=== PATIENT | male | born 1965 | race Caucasian/White ===

== ENCOUNTER 2017-02-17 14:01 | Inpatient (IN) | payer OTHER ==
[~2017-02-17] VITALS: Ht 170.2 cm; Wt 100.0 kg
[~2017-02-17 14:01] MED LIST: ASPI81 PO; CART120C2 PO; EMPA1TAB PO; GLUCOMTESTSTRIPS XX; INSU-118 SQ; LEVEMIR SQ; LISI-360 PO; LORTA5 PO; METF-324 PO; ROSU40 PO; VIAG50TA PO; ZOFR4TAB3 SL
[2017-02-17 14:03] VITALS: BP 117/70; PULSE 95; RESP 16; TEMP 98.5; O2SAT 98
[2017-02-17] MEDS ORDERED: VANCOMYCIN INJ 1,000 MG in SODIUM CHLOR 0.9% 250 ML INJ 250 ML IV STA (15:27)
[2017-02-17] MEDS ORDERED: PIPERACIL-TAZO 4.5 GM PREMIX 100 ML IV STA (15:27)
[2017-02-17] MEDS ORDERED: ONDANSETRON HCL 4 MG/2 ML VIAL IV PUSH ONE (16:00)
[2017-02-17 16:11] VITALS: O2SAT 97
--- NOTE | 2017-02-17 16:15 | RADRPT ---
EXAM DATE/TIME: 02/17/2017 15:46 [facility] COMPARISON: No previous studies available for comparison. INDICATIONS : Possible left foot infection. Swelling around the 4th and 5th digit. Ulcer on plantar surface around 4th and 5th digit. MEDICAL HISTORY : Diabetes mellitus type II. SURGICAL HISTORY : None. ENCOUNTER: Initial ACUITY: 3 months PAIN SCORE: 0/10 LOCATION: Left foot. FINDINGS: Soft tissue swelling is noted involving the left fourth and fifth digits. There is no acute fracture or dislocation. No definite erosive changes are identified within the left foot. Mild degenerative c hanges are noted involving the left first metatarsophalangeal joint. CONCLUSION: 1. Mild soft-tissue swelling involving the left fourth and fifth digits. 2. No acute fracture, dislocation or erosive changes. 3. Mild degenerative changes involving the left first metatarsophalangeal joint. Mike Naylor MD on February 17, 2017 at 16:02 Board Certified Radiologist. This report was verified electronically.
--- NOTE | 2017-02-17 16:41 | PD ---
HPI Chief Complaint: Skin Problem Time Seen by Provider: 16:38 Travel History International Travel<30 days: No Contact w/Intl Traveler<30days: No Traveled to known affect area: No History of Present Illness HPI 51-year-old male that presents to the ED for evaluation of wounds to his left leg. Per patient he has an ulcer from diabetes on his left foot. Patient follows with Dr. Davies regularly and she's been treating him for the past 3 months for this with no resolution. Per patient she was seen today and Dr. Davies was concerned because the wound appeared to be more infected and she wrote him a prescription that states that [facility] and consult to him and will like at MRI as well as start the patient on Vancomycin Zosyn. Patient voices no pain as he has chronic neuropathy. Patient has a history of diabetes and takes insulin. She states that the swelling and redness appears to be worsening. He states having chills for the past couple of days worsening today. No actual fever as he has not checked his temperature. No chest pain or shortness of breath. No cough or runny nose. No abdominal pain. No other complaints. PFSH Past Medical History Asthma: Yes Cancer: No Cardiovascular Problems: Yes (TACHYCARDIA ) High Cholesterol: Yes Diabetes: Yes Diminished Hearing: No Endocrine: Yes Gastrointestinal Disorders: Yes (ACID REFLUX, NAUSEA/VOMITING) Genitourinary: No Hepatitis: No Hiatal Hernia: Yes (POSSIBLY) Hypertension: Yes Immune Disorder: No Musculoskeletal: Yes (ARTHRITIS LOWER BACK) Neurologic: Yes (PERIPHERAL NEUROPATHY) Psychiatric: No Reproductive: No Respiratory: Yes (SEVERE SLEEP APNEA, CHILDHOOD ASTHMA) Myocardial Infarction: Yes (12-13 YEARS AGO) Thyroid Disease: No ?: Past Surgical History AICD: No Body Medical Devices: REMOVABLE PROSTHETIC L EYE Eye Surgery: Yes (LEFT EYE ENUCLEATION 2004) Joint Replacement: No Oral Surgery: Yes (TONSILLECTOMY) Pacemaker: No Tonsillectomy: Yes Social History Alcohol Use: Yes Tobacco Use: No Substance Use: No Allergies-Medications (Allergen,Severity, Reaction): Coded Allergies: No Known Allergies (Verified , 05/24/16) Reported Meds & Prescriptions Reported Meds & Active Scripts Active Zofran ODT (Ondansetron HCl) 4 Mg Tab 4 Mg SL Q8HR PRN FOR NAUSEA/VOMITING [place] 5-325 mg (Hydrocodone-Acetaminophen 5-325 mg) 1 Tab 1 Tab PO Q6HR PRN Cartia XT 120 mg (DILTIAZEM XT 120 mg (Cartia)) 120 Mg/24 Hr Cap 120 Mg PO HS Needs follow up. Glucophage (Metformin HCl) 1,000 Mg Tab 1,000 Mg PO BID Lisinopril 10 mg (Lisinopril) 10 Mg Tab 10 Mg PO HS [employer] Insulin Syringes/ 31G X 5/16" 1 ml (Insulin Syringe/Needle U-100) 1 Mis Mis Syringe SQ TID 100units. 12 refills. Glucometer Test Strips (Glucomteststrips) Box 1 Strips XX QID Check 4 times a day. On insulin. 2 boxes Refill 12 times Viagra (Sildenafil Citrate) 50 Mg Tab 50 Mg PO ONCE PRN Reported Levemir Insulin (Insulin Detemir) 100 Units/Ml Inj 75 Units SQ BID Jardiance (Empagliflozin) 10 Mg Tab 10 Mg PO DAILY Crestor (Rosuvastatin Calcium) 40 Mg Tab 1 Tab PO HS Aspirin 81 Mg Tab 81 Mg PO DAILY Review of Systems Except as stated in HPI: all other systems reviewed are Neg Physical Exam Narrative GENERAL: SKIN: Warm and dry. HEAD: Atraumatic. Normocephalic. EYES: Pupils equal and round. No scleral icterus. No injection or drainage. ENT: No nasal bleeding or discharge. Mucous membranes pink and moist. Tongue is midline. No blood deviation. NECK: Trachea midline. No JVD. CARDIOVASCULAR: Regular rate and rhythm. No murmurs, S3, S4. RESPIRATORY: No accessory muscle use. Clear to auscultation. Breath sounds equal bilaterally. GASTROINTESTINAL: Abdomen soft, non-tender, nondistended. Hepatic and splenic margins not palpable. MUSCULOSKELETAL: Extremities without clubbing, cyanosis, or edema. No obvious deformities. Full range of motion of the upper and lower extremities bilaterally. 2+ pulses bilaterally. Patient does have soft tissue swelling noted especially on the dorsal and plantar aspect of the left foot. Patient has an ulcer with drainage and erythema on the sole of the foot. Nontender. NEUROLOGICAL: Awake and alert. No obvious cranial nerve deficits. Motor grossly within normal limits. Five out of 5 muscle strength in the arms and legs. Normal speech. PSYCHIATRIC: Appropriate mood and affect; insight and judgment normal. Data Data Last Documented VS Vital Signs Date Time Temp Pulse Resp B/P Pulse Ox O2 Delivery O2 Flow Rate FiO2 02/17/17 16:11 97 02/17/17 16:11 Room Air 02/17/17 14:03 98.5 95 16 117/70 Orders Complete Blood Count With Diff (02/17/17 15:27) Comprehensive Metabolic Panel (02/17/17 15:) Lactic Acid Sepsis Protocol (02/17/17 15:) Blood Culture (02/17/17) Blood Glucose (02/17/17:) Ecg Monitoring (02/17/17) Iv Access Insert/Monitor (02/17/17) Oximetry (02/17/17) Oxygen Administration (02/17/17) Piperacil-Tazo 4.5 Gm Premix (Zosyn 4.5 (02/17/17 15:) Vancomycin Inj (Vancomycin Inj) (02/17/17 15:27) Foot, Complete (Jpg1ozo) (02/17/17 15:) Ondansetron Inj (Zofran Inj) (02/17/17 16:00) Mri Foot W&W/O Contrast (02/17/17 ) Admit Order (Ed Use Only) (02/17/17 17:04) Labs Laboratory Tests Test 02/17/17 02/17/17 16:18 16:20 Lactic Acid Level 1.2 mmol/L White Blood Count 11.5 TH/MM3 Red Blood Count 4.50 MIL/MM3 Hemoglobin 11.7 GM/DL Hematocrit 35.5 % Mean Corpuscular Volume 78.8 FL Mean Corpuscular Hemoglobin 26.1 PG Mean Corpuscular Hemoglobin 33.1 % Concent Red Cell Distribution Width 13.8 % Platelet Count 239 TH/MM3 Mean Platelet Volume 8.4 FL Neutrophils (%) (Auto) 69.1 % Lymphocytes (%) (Auto) 17.5 % Monocytes (%) (Auto) 11.4 % Eosinophils (%) (Auto) 1.7 % Basophils (%) (Auto) 0.3 % Neutrophils # (Auto) 7.9 TH/MM3 Lymphocytes # (Auto) 2.0 TH/MM3 Monocytes # (Auto) 1.3 TH/MM3 Eosinophils # (Auto) 0.2 TH/MM3 Basophils # (Auto) 0.0 TH/MM3 CBC Comment DIFF FINAL Differential Comment MDM Medical Decision Making Medical Screen Exam Complete: Yes Emergency Medical Condition: Yes Medical Record Reviewed: Yes Interpretation(s) CBC & BMP Diagram 02/17/17 16:20 Last Impressions Foot X-Ray 02/17/17 1527 Signed Impressions: Service Date/Time: Friday, February 17, 2017 15:46 - CONCLUSION: 1. Mild soft-tissue swelling involving the left fourth and fifth digits. 2. No acute fracture, dislocation or erosive changes. 3. Mild degenerative changes involving the left first metatarsophalangeal joint. Mike Naylor MD Differential Diagnosis Osteomyelitis versus diabetic foot ulcer versus fell outpatient treatment versus nonhealing ulcer Narrative Course 51-year-old male that presents to the ED for evaluation of ulcer that is infected. Patient was properly examined and was found to have signs and symptoms very consistent what appears to be filled patient treatment for a diabetic ulcer. Dr. Davies evaluated him today and told him to come here to get admitted for IV antibiotics and consultation to him to rule out osteomyelitis. Patient does have a history of this in the past. Patient has been in multiple courses of antibiotics for the past 3 months with no resolution and the infection seems to be worsening. Labs and imaging were ordered. Case discussed in my attending who agrees with plan. [facility] hospitalist Dr Jiménez agrees to admission. Diagnosis Primary Impression: Diabetic foot infection Additional Impressions: Non-healing ulcer of lower leg Qualified Code: L97.922 - Non-healing ulcer of lower leg, left, with fat layer exposed Diabetes mellitus Qualified Code: E11.42 - Type 2 diabetes mellitus with diabetic polyneuropathy , with long-term current use of insulin Failure of outpatient treatment Admitting Information Admitting Physician Requests: Admit Waldo Ledesma Feb 17, 2017 16:41
[2017-02-17 16:54] LABS: AUTOMATED NEUTROPHIL # 7.9 TH/MM3 (1.8-7.7); BASOPHIL % 0.3 % (0.0-2.0); EOSINOPHIL # 0.2 TH/MM3 (0-0.4); EOSINOPHIL % 1.7 % (0.0-4.0); HEMATOCRIT 35.5 % (39.0-51.0); HEMO FLAGS DIFF FINAL; LYMPH % 17.5 % (9.0-44.0); MEAN CELL VOLUME 78.8 FL (80.0-100.0); MEAN CORPUSCULAR HEMOGLOBIN 26.1 PG (27.0-34.0); MEAN CORPUSCULAR HGB CONC 33.1 % (32.0-36.0); MONO % 11.4 % (0.0-8.0); NEUT % 69.1 % (16.0-70.0); PLATELET COUNT 239 TH/MM3 (150-450); RED CELL DISTRIBUTION WIDTH 13.8 % (11.6-17.2); WHITE BLOOD COUNT 11.5 TH/MM3 (4.0-11.0)
[2017-02-17 17:05] VITALS: BP 132/63; PULSE 88; RESP 16; O2SAT 98
[2017-02-17 17:27] LABS: ALT (GPT) 17 U/L (12-78); ANION GAP 6 MEQ/L (5-15); AST (GOT) 8 U/L (15-37); BLOOD UREA NITROGEN 21 MG/DL (7-18); CHLORIDE 105 MEQ/L (98-107); GLOMERULAR FILTRATION RATE 81 ML/MIN (>89); POTASSIUM 3.8 MEQ/L (3.5-5.1); SODIUM (NA) 139 MEQ/L (136-145)
[2017-02-17 17:30] LABS: ALKALINE PHOSPHATASE 66 U/L (45-117); TOTAL BILIRUBIN ADULT 0.8 MG/DL (0.2-1.0)
[2017-02-17] MEDS ORDERED: GADODIAMIDE PF 287 MG/ML 20 ML VIAL (for RAD MRI) IV ONE (18:32)
[2017-02-17 19:15] VITALS: BP 100/62; PULSE 96; RESP 20; O2SAT 96
--- NOTE | 2017-02-17 20:01 | HHI.HP ---
HPI Service [facility] Hospitalists Primary Care Physician Anthony Kincaid MD Admission Diagnosis left foot infected diabetic ulcer, failed outpatient treatment Chief Complaint: left foot infection, sent by clinical mental health counselor Travel History International Travel<30 Days: No Contact w/Intl Traveler <30 Da: No Traveled to Known Affected Are: No History of Present Illness 51-year-old male with DM2 and prior osteomyelitis that presents to the ED for evaluation of wounds to his left leg. Per patient he has an ulcer from diabetes on his left foot. Patient follows with Dr. Davies regularly and she's been treating him for the past 2.5-3 months for this with no resolution. Per patient she was seen today and Dr. Davies was concerned because the wound appeared to be more infected and she wrote him a prescription that states that [facility] and consult to her and will like at MRI as well as start the patient on Vancomycin/Zosyn. Patient voices no pain as he has chronic neuropathy. Patient has a history of diabetes and takes insulin as well as oral hyperglycemic agents. She states that the swelling and redness appears to be worsening. He states having chills for the past couple of days worsening today. No actual fever as he has not checked his temperature, but reports subjective fever last 2 days with more redness in left 4th toe. No chest pain or shortness of breath. No cough or runny nose. No abdominal pain. No other complaints. Review of Systems Constitutional: COMPLAINS OF: Diaphoretic episodes, Fever, Chills, DENIES: Fatigue, Weight gain, Weight loss, Dizziness, Change in appetite, Night Sweats Endocrine: DENIES: Heat/cold intolerance, Polydipsia, Polyuria, Polyphagia Eyes: COMPLAINS OF: Vision loss, DENIES: Blurred vision, Diplopia, Eye inflammation, Eye pain, Photosensitivity, Double Vision Ears, nose, mouth, throat: DENIES: Tinnitus, Hearing loss, Vertigo, Nasal discharge, Oral lesions, Throat pain, Hoarseness, Ear Pain, Running Nose, Epistaxis, Sinus Pain, Toothache, Odynophagia Respiratory: DENIES: Apneas, Cough, Snoring, Wheezing, Hemoptysis, Sputum production, Shortness of breath Cardiovascular: DENIES: Chest pain, Palpitations, Syncope, Dyspnea on Exertion , PND, Lower Extremity Edema, Orthopnea, Claudication Gastrointestinal: DENIES: Abdominal pain, Black stools, Bloody stools, BRB per rectum, Constipation, Diarrhea, GERD, Nausea, Reflux, Vomiting, Difficulty Swallowing, Anorexia, See HPI Musculoskeletal: COMPLAINS OF: Joint pain Hematologic/lymphatic: DENIES: Bruising, Lymphadenopathy Immunologic/allergic: DENIES: Eczema, Urticaria Neurologic: COMPLAINS OF: Abnormal gait, Paresthesias, DENIES: Headache, Localized weakness, Seizures, Speech Problems, Tremor, Poor Balance Psychiatric: COMPLAINS OF: Anxiety Past Family Social History Past Medical History DM2 dx in late HTN Hyperlipidemia osteomyelitis 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 Glucophage (Metformin HCl) 1,000 Mg Tab 1,000 Mg PO BID Ramipril 5mg/d Glucometer Test Strips (Glucomteststrips) Box 1 Strips XX QID Check 4 times a day. On insulin. 2 boxes Refill 12 times Viagra (Sildenafil Citrate) 50 Mg Tab 50 Mg PO ONCE PRN Levemir Insulin (Insulin Detemir) 100 Units/Ml Inj 40 Units in AM, 60 units in evening Novolog ssi Jardiance (Empagliflozin) 25 Mg PO DAILY Crestor (Rosuvastatin Calcium) 40 Mg Tab 1 Tab PO HS Lyrica 100mg in evening. 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 SKIN: left foot dorsum with erythema around 4th toe, sole of left foot with appx 1.5 cm linear open wound with foul smelling, exudative dc HEAD: Atraumatic. Normocephalic. No temporal or scalp tenderness. EYES: Left eye prosthesis noted, right eye wnl. Extraocular motions intact. No scleral icterus. No injection or drainage. ENT: Nose without bleeding, purulent drainage or septal hematoma. Throat without erythema, tonsillar hypertrophy or exudate. Uvula midline. Airway patent. NECK: Trachea midline. No JVD or lymphadenopathy. Supple, nontender, no meningeal signs. CARDIOVASCULAR: Regular rate and rhythm without murmurs, gallops, or rubs. RESPIRATORY: Clear to auscultation. Breath sounds equal bilaterally. No wheezes , rales, or rhonchi. GASTROINTESTINAL: Abdomen soft, non-tender, nondistended. No hepato-splenomegaly , or palpable masses. No guarding. MUSCULOSKELETAL: Left foot as noted above, right 5th toe postsurgical changes, No calf tenderness. NEUROLOGICAL: Awake and alert. Cranial nerves II through XII intact. Motor grossly within normal limits. Decreased sensation in distal BLE and BUE. Five out of 5 muscle strength in all muscle groups. Normal speech. Laboratory Laboratory Tests Test 02/17/17 02/17/17 16:18 16:20 Lactic Acid Level 1.2 White Blood Count 11.5 Red Blood Count 4.50 Hemoglobin 11.7 Hematocrit 35.5 Mean Corpuscular Volume 78.8 Mean Corpuscular Hemoglobin 26.1 Mean Corpuscular Hemoglobin 33.1 Concent Red Cell Distribution Width 13.8 Platelet Count 239 Mean Platelet Volume 8.4 Neutrophils (%) (Auto) 69.1 Lymphocytes (%) (Auto) 17.5 Monocytes (%) (Auto) 11.4 Eosinophils (%) (Auto) 1.7 Basophils (%) (Auto) 0.3 Neutrophils # (Auto) 7.9 Lymphocytes # (Auto) 2.0 Monocytes # (Auto) 1.3 Eosinophils # (Auto) 0.2 Basophils # (Auto) 0.0 CBC Comment DIFF FINAL Differential Comment Sodium Level 139 Potassium Level 3.8 Chloride Level 105 Carbon Dioxide Level 28.0 Anion Gap 6 Blood Urea Nitrogen 21 Creatinine 0.98 Estimat Glomerular Filtration 81 Rate Random Glucose 104 Calcium Level 9.1 Total Bilirubin 0.8 Aspartate Amino Transf 8 (AST/SGOT) Alanine Aminotransferase 17 (ALT/SGPT) Alkaline Phosphatase 66 Total Protein 7.5 Albumin 3.3 Date/Time Procedure Status Source Growth 02/17/17 16:30 Aerobic Blood Culture Received Blood Peripheral Pending 02/17/17 16:30 Anaerobic Blood Culture Received Blood Peripheral Pending Result Diagram: 02/17/17 1620 02/17/17 1620 Imaging Last 72 hours Impressions Foot X-Ray 02/17/17 1527 Signed Impressions: Service Date/Time: Friday, February 17, 2017 15:46 - CONCLUSION: 1. Mild soft-tissue swelling involving the left fourth and fifth digits. 2. No acute fracture, dislocation or erosive changes. 3. Mild degenerative changes involving the left first metatarsophalangeal joint. Mike Naylor MD Assessment and Plan Problem List: (1) Diabetic foot infection Status: Chronic Plan: worsening last 2 weeks; failed several outpt abx. Dr Davies to see. MRI done. IV abx started. (2) Diabetes mellitus Status: Chronic Plan: A1c was around 8.7 in December 2016 per pt. Will use ssi and lower dose Levemir (3) Diabetic neuropathy Status: Chronic Plan: has started Lyrica over last month or 2. Gabapentin caused too much fatigue at higher doses. (4) Elevated cholesterol Status: Chronic Plan: cont rx (5) Hypertension Status: Chronic Plan: cont rx Physician Certification 2 Midnight Certification Type: Admission for Inpatient Services Order for Inpatient Services The services are ordered in accordance with Medicare regulations or non- Medicare payer requirements, as applicable. In the case of services not specified as inpatient-only, they are appropriately provided as inpatient services in accordance with the 2-midnight benchmark. Estimated LOS (days): 3 days is the estimated time the patient will need to remain in the hospital, assuming treatment plan goals are met and no additional complications. Post-Hospital Plan: Home Problem Qualifiers (1) Diabetes mellitus: Qualified Code: E11.42 - Type 2 diabetes mellitus with diabetic polyneuropathy , with long-term current use of insulin (2) Diabetic neuropathy: Martir Jiménez MD PhD Feb 17, 2017 20:01
[2017-02-17] MEDS ORDERED: Vancomycin Consult Pharmacy 1 EA OTHER SCH (20:15)
--- NOTE | 2017-02-17 20:23 | RADRPT ---
EXAM DATE/TIME: 02/17/2017 17:51 [facility] COMPARISON: No previous studies available for comparison. INDICATIONS : Osteomyelitis. Wound on plantar surface near fourth digit, left foot. CONTRAST: 20 cc Omniscan (gadodiamide) IV MEDICAL HISTORY : Myocardial infarction. Diabetes. SURGICAL HISTORY : Tonsillectomy. Bi-lateral hands. Left eye. Right foot, fifth digit partial amputation. ENCOUNTER: Subsequent ACUITY: 2 months PAIN SCORE: 0/10 LOCATION: Left foot TECHNIQUE: Multiplanar, multisequence MRI examination was performed without contrast and after the intravenous a dministration of gadolinium. FINDINGS: There is a plantar ulcer of the forefoot that extends down to the fourth metatarsophalangeal joint. T here is cortical indistinctness and marrow edema and faint decreased T1 signal abnormality of the hea d of the fourth metatarsal and the base of the proximal phalanx. There is reactive appearing enhancem ent, including of the bones. No organized or drainable fluid seen here. An approximately 12 x 16 x 33 mm thick walled fluid collection is seen in the subcutaneous tissues of the heel pad. There is mild marrow edema throughout the navicular bone. This is nonspecific but there does appear t o be mild talonavicular and navicular/lateral cuneiform osteoarthritis. CONCLUSION: 1. Deep soft tissue ulcer plantar to the fourth metatarsophalangeal joint and with suspected osteomye litis of the fourth metatarsal head and proximal phalangeal base. No abscess. 2. Chronic appearing subcutaneous fluid collection of the heel pad, nonspecific but could be related to old trauma. An acute abscess is doubted. The underlying bone is normal. 3. Mild marrow edema of the navicular that is likely reactive. Mild navicular/cuneiform and talonavic ular osteoarthritis noted. Navicular osteomyelitis is doubted. Og Paz MD on February 17, 2017 at 20:16 Board Certified Radiologist. This report was verified electronically.
[2017-02-17] MEDS: DILTIAZEM-CD 120 MG CAP ER PO SCH (21:00)
[2017-02-17] MEDS: INSULIN ASPART SUPPLEMENTAL SCALE SQ SCH (21:00)
[2017-02-17 21:08] LABS: APTT (PATIENT) 32.1 SEC (24.3-30.1); PROTHROMBIN TIME - PATIENT 11.3 SEC (9.8-11.6)
[2017-02-17 21:19] VITALS: BP 110/66; PULSE 90; RESP 20; TEMP 99; O2SAT 95
[2017-02-17 23:00] VITALS: BP 110/66; PULSE 90; RESP 20; TEMP 99; O2SAT 95
[2017-02-17] MEDS: ATORVASTATIN 80 MG TAB PO SCH (23:02)
[2017-02-17] MEDS: ONDANSETRON HCL 4 MG/2 ML VIAL IV PUSH PRN (23:03)
[2017-02-17] MEDS: INSULIN DETEMIR 100 UNITS/ML VIAL SQ SCH (23:08)
[2017-02-17] MEDS: PIPERACIL-TAZO 3.375 GM PREMIX 50 ML IV SCH (23:29)
[2017-02-18] MEDS: VANCOMYCIN INJ 1,250 MG in SODIUM CHLOR 0.9% 250 ML INJ 250 ML IV SCH ×2 (00:04→11:55)
[2017-02-18 00:18] VITALS: BP 117/75; PULSE 80; RESP 22; TEMP 99; O2SAT 96
[2017-02-18 06:20] LABS: AUTOMATED NEUTROPHIL # 6.2 TH/MM3 (1.8-7.7); BASOPHIL % 0.4 % (0.0-2.0); EOSINOPHIL # 0.2 TH/MM3 (0-0.4); EOSINOPHIL % 2.6 % (0.0-4.0); HEMATOCRIT 33.2 % (39.0-51.0); HEMO FLAGS DIFF FINAL; LYMPH % 18.3 % (9.0-44.0); LYMPHOCYTE # 1.7 TH/MM3 (1.0-4.8); MEAN CELL VOLUME 79.6 FL (80.0-100.0); MEAN CORPUSCULAR HEMOGLOBIN 26.2 PG (27.0-34.0); MEAN CORPUSCULAR HGB CONC 32.9 % (32.0-36.0); MONO % 11.1 % (0.0-8.0); NEUT % 67.6 % (16.0-70.0); PLATELET COUNT 215 TH/MM3 (150-450); RED BLOOD COUNT 4.17 MIL/MM3 (4.50-5.90); RED CELL DISTRIBUTION WIDTH 13.8 % (11.6-17.2); WHITE BLOOD COUNT 9.2 TH/MM3 (4.0-11.0)
[2017-02-18 08:00] VITALS: BP 115/71; PULSE 88; RESP 17; TEMP 99.5; O2SAT 93
[2017-02-18] MEDS: RAMIPRIL 5 MG CAP PO SCH (08:45)
[2017-02-18] MEDS: PIPERACIL-TAZO 3.375 GM PREMIX 50 ML IV SCH ×2 (08:45→16:41)
[2017-02-18] MEDS: INSULIN DETEMIR 100 UNITS/ML VIAL SQ SCH ×2 (08:48→19:37)
--- NOTE | 2017-02-18 09:03 | HHI.PR ---
Subjective Remarks Pt reports that he has had chills over night but no fevers Pt denies any pain in the foot due to neuropathy Objective Vitals Vital Signs Date Time Temp Pulse Resp B/P Pulse Ox O2 Delivery O2 Flow Rate FiO2 02/18/17 08:00 99.5 88 17 115/71 93 02/18/17 00:18 99.0 80 22 117/75 96 02/17/17 23:00 99.0 90 20 110/66 95 02/17/17 21:19 99.0 90 20 110/66 95 02/17/17 19:15 96 20 100/62 96 02/17/17 17:05 88 16 132/63 98 02/17/17 16:11 97 02/17/17 16:11 96 Room Air 02/17/17 14:03 98.5 95 16 117/70 98 Room Air 02/17/17 02/17/17 02/18/17 15:00 23:00 07:00 Intake Total 0 ml 250 ml Balance 0 ml 250 ml Intake IV Total 0 ml 250 ml Result Diagram: 02/18/17 0517 02/17/17 1620 Other Results Laboratory Tests Test 02/17/17 02/17/17 02/17/17 02/18/17 16:18 16:20 20:25 05:17 Lactic Acid Level 1.2 mmol/L White Blood Count 11.5 TH/MM3 9.2 TH/MM3 Red Blood Count 4.50 MIL/MM3 4.17 MIL/MM3 Hemoglobin 11.7 GM/DL 10.9 GM/DL Hematocrit 35.5 % 33.2 % Mean Corpuscular Volume 78.8 FL 79.6 FL Mean Corpuscular Hemoglobin 26.1 PG 26.2 PG Mean Corpuscular Hemoglobin 33.1 % 32.9 % Concent Red Cell Distribution Width 13.8 % 13.8 % Platelet Count 239 TH/MM3 215 TH/MM3 Mean Platelet Volume 8.4 FL 8.0 FL Neutrophils (%) (Auto) 69.1 % 67.6 % Lymphocytes (%) (Auto) 17.5 % 18.3 % Monocytes (%) (Auto) 11.4 % 11.1 % Eosinophils (%) (Auto) 1.7 % 2.6 % Basophils (%) (Auto) 0.3 % 0.4 % Neutrophils # (Auto) 7.9 TH/MM3 6.2 TH/MM3 Lymphocytes # (Auto) 2.0 TH/MM3 1.7 TH/MM3 Monocytes # (Auto) 1.3 TH/MM3 1.0 TH/MM3 Eosinophils # (Auto) 0.2 TH/MM3 0.2 TH/MM3 Basophils # (Auto) 0.0 TH/MM3 0.0 TH/MM3 CBC Comment DIFF FINAL DIFF FINAL Differential Comment Sodium Level 139 MEQ/L Potassium Level 3.8 MEQ/L Chloride Level 105 MEQ/L Carbon Dioxide Level 28.0 MEQ/L Anion Gap 6 MEQ/L Blood Urea Nitrogen 21 MG/DL Creatinine 0.98 MG/DL Estimat Glomerular Filtration 81 ML/MIN Rate Random Glucose 104 MG/DL Calcium Level 9.1 MG/DL Total Bilirubin 0.8 MG/DL Aspartate Amino Transf 8 U/L (AST/SGOT) Alanine Aminotransferase 17 U/L (ALT/SGPT) Alkaline Phosphatase 66 U/L Total Protein 7.5 GM/DL Albumin 3.3 GM/DL Prothrombin Time 11.3 SEC Prothromb Time International 1.0 RATIO Ratio Activated Partial 32.1 SEC Thromboplast Time Imaging Last Impressions Foot X-Ray 02/17/17 1527 Signed Impressions: Service Date/Time: Friday, February 17, 2017 15:46 - CONCLUSION: 1. Mild soft-tissue swelling involving the left fourth and fifth digits. 2. No acute fracture, dislocation or erosive changes. 3. Mild degenerative changes involving the left first metatarsophalangeal joint. Mike Naylor MD Foot MRI 02/17/17 0000 Signed Impressions: Service Date/Time: Friday, February 17, 2017 17:51 - CONCLUSION: 1. Deep soft tissue ulcer plantar to the fourth metatarsophalangeal joint and with suspected osteomyelitis of the fourth metatarsal head and proximal phalangeal base. No abscess. 2. Chronic appearing subcutaneous fluid collection of the heel pad, nonspecific but could be related to old trauma. An acute abscess is doubted. The underlying bone is normal. 3. Mild marrow edema of the navicular that is likely reactive. Mild navicular/cuneiform and talonavicular osteoarthritis noted. Navicular osteomyelitis is doubted. Og Paz MD Objective Remarks General: NAD, AAOx3 Chest: CTA Cardiac: Regular Abd: +BS, soft ND/NT Ext: Left foot erythema and swelling on the dorsal and plantar aspect shallow ulcer on the upper part of the plantar aspect and below that is a hole with some bloody purulent drainage A/P Problem List: (1) Diabetic foot infection Status: Chronic Plan: - Pt has had a small open wound on the plantar aspect of his foot for the last 2 -3 months. - He reports that he has been on 2 or 3 rounds of different antibiotics, the last of which was Bactrim (he is unable to recall the previous Abx) - Over the last 2 weeks the wound has been worsening despite debridement by podiatry per the pt. - Then two days ago he noted more swelling and erythema on the dorsal aspect of the foot. - Pt sent to the ED for IV Abx and MRI - MRI Foots (02/17) --> Deep soft tissue ulcer plantar to the fourth metatarsophalangeal joint and with suspected osteomyelitis of the fourth metatarsal head and proximal phalangeal base. No abscess. Chronic appearing subcutaneous fluid collection of the heel pad, nonspecific but could be related to old trauma. An acute abscess is doubted. The underlying bone is normal. Mild marrow edema of the navicular that is likely reactive. Mild navicular/cuneiform and talonavicular osteoarthritis noted. Navicular osteomyelitis is doubted. - Podiatry to evaluate today - Pt reports that a wound culture was taken at the podiatrists office yesterday we will need to await these results - Cont. IV Vanc with pharmacy dosing - Supportive care (2) Diabetes mellitus Status: Chronic Plan: - A1c was around 8.7 in December 2016 per pt. - SSI and lower dose Levemir (3) Diabetic neuropathy Status: Chronic Plan: - Pt has started Lyrica over last month or 2. - Gabapentin caused too much fatigue at higher doses. (4) Elevated cholesterol Status: Chronic Plan: cont rx (5) Hypertension Status: Chronic Plan: cont rx Assessment and Plan Patient examined. Assessment and plan formulated with Frieda Pastor PA-C. I agree with the above. spoke to Dr Leiva..probably to OR tomorrow for amputation of osteo sites. on abx. f/u cx from office. Problem Qualifiers (1) Diabetes mellitus: Qualified Code: E11.42 - Type 2 diabetes mellitus with diabetic polyneuropathy , with long-term current use of insulin (2) Diabetic neuropathy: Frieda Pastor 14, 2017 09:03 Milad Parry MD Feb 18, 2017 10:13
[2017-02-18] MEDS: INSULIN ASPART SUPPLEMENTAL SCALE SQ SCH ×3 (11:54→20:42)
[2017-02-18] MEDS: ONDANSETRON HCL 4 MG/2 ML VIAL IV PUSH PRN (11:55)
--- NOTE | 2017-02-18 17:59 | PD.POD ---
Subjective Podiatric Problems Tried to see patient bedside today and he was in shower. Past Med/Surg/Social History Past Medical History Endocrine: REPORTS HX OF: Diabetes mellitus (1997) Cardiovascular: REPORTS HX OF: Hyperlipidemia (2004), Myocardial infarction ( 1999), Other CV history (palpatations - 2013 SVT at [facility]) Gastrointestinal: REPORTS HX OF: Other GI history (Nausea & vomitting - present ) Musculoskeletal: REPORTS HX OF: Osteoarthritis (2008) Past Surgical History HEENT: REPORTS HX OF: Tonsillectomy (1971) Musculoskeletal: REPORTS HX OF: Other musculoskeletal srg (Carpal tunnel release 1989) Social History Smoking Status: Never Smoker Objective Vital Signs Vital Signs Date Time Temp Pulse Resp B/P Pulse Ox O2 Delivery O2 Flow Rate FiO2 02/18/17 08:00 99.5 88 17 115/71 93 02/18/17 00:18 99.0 80 22 117/75 96 02/17/17 23:00 99.0 90 20 110/66 95 02/17/17 21:19 99.0 90 20 110/66 95 02/17/17 19:15 96 20 100/62 96 Coded Allergies: No Known Allergies (Verified , 05/24/16) Assessment & Plan A/P Will discuss MRI findings with Dr Paz Plan to OR tomorrow 5 pm for partial 4th ray amputation left, possible partial 5th ray amputation left John Leiva DPM Feb 18, 2017 17:58
[2017-02-18] MEDS: DILTIAZEM-CD 120 MG CAP ER PO SCH (19:33)
[2017-02-18] MEDS: ATORVASTATIN 80 MG TAB PO SCH (19:33)
[2017-02-18 20:00] VITALS: BP 119/75; PULSE 80; RESP 18; TEMP 98.4; O2SAT 97
[2017-02-19] MEDS: VANCOMYCIN INJ 1,250 MG in SODIUM CHLOR 0.9% 250 ML INJ 250 ML IV SCH ×3 (00:13→23:44)
[2017-02-19] MEDS: ONDANSETRON HCL 4 MG/2 ML VIAL IV PUSH PRN ×3 (00:13→23:44)
[2017-02-19 00:56] VITALS: BP 112/71; PULSE 77; RESP 18; TEMP 98.6; O2SAT 94
[2017-02-19] MEDS: PIPERACIL-TAZO 3.375 GM PREMIX 50 ML IV SCH ×3 (01:17→15:49)
[2017-02-19] MEDS: INSULIN ASPART SUPPLEMENTAL SCALE SQ SCH ×4 (05:52→20:40)
[2017-02-19 06:20] LABS: AUTOMATED NEUTROPHIL # 4.7 TH/MM3 (1.8-7.7); BASOPHIL % 0.4 % (0.0-2.0); EOSINOPHIL # 0.3 TH/MM3 (0-0.4); EOSINOPHIL % 4.1 % (0.0-4.0); HEMATOCRIT 32.1 % (39.0-51.0); HEMO FLAGS DIFF FINAL; LYMPH % 23.4 % (9.0-44.0); LYMPHOCYTE # 1.8 TH/MM3 (1.0-4.8); MEAN CELL VOLUME 78.3 FL (80.0-100.0); MEAN CORPUSCULAR HEMOGLOBIN 26.8 PG (27.0-34.0); MEAN CORPUSCULAR HGB CONC 34.2 % (32.0-36.0); MONO % 9.8 % (0.0-8.0); NEUT % 62.3 % (16.0-70.0); PLATELET COUNT 231 TH/MM3 (150-450); RED CELL DISTRIBUTION WIDTH 13.8 % (11.6-17.2); WHITE BLOOD COUNT 7.5 TH/MM3 (4.0-11.0)
[2017-02-19 06:43] LABS: BICARBONATE 27.3 MEQ/L (21.0-32.0); MAGNESIUM 2.3 MG/DL (1.5-2.5)
[2017-02-19 08:00] VITALS: BP 125/77; PULSE 76; RESP 19; TEMP 97.9; O2SAT 93
[2017-02-19] MEDS: INSULIN DETEMIR 100 UNITS/ML VIAL SQ SCH ×2 (09:00→21:00)
[2017-02-19] MEDS: RAMIPRIL 5 MG CAP PO SCH (09:24)
[2017-02-19] MEDS ORDERED: LORATADINE 10 MG TAB PO ONE (09:30)
--- NOTE | 2017-02-19 10:38 | HHI.PR ---
Subjective Remarks doing well. Objective Vitals heart reg lung cta abd s/nt ext left foot swollen. planter ulcer and dorsal erythema. some chronic perez redness/pigmentation Vital Signs Date Time Temp Pulse Resp B/P Pulse Ox O2 Delivery O2 Flow Rate FiO2 02/19/17 08:00 97.9 76 19 125/77 93 02/19/17 00:56 98.6 77 18 112/71 94 02/18/17 20:00 98.4 80 18 119/75 97 02/18/17 02/18/17 02/19/17 15:00 23:00 07:00 Intake Total 381 ml 480 ml 880 ml Output Total 700 ml Balance -319 ml 480 ml 880 ml Intake Oral 240 ml 480 ml 580 ml IV Total 141 ml 300 ml Output Urine Total 700 ml # Voids 2 2 # Bowel Movements 0 0 Result Diagram: 02/19/17 0532 02/19/17 0532 Imaging Last Impressions Foot X-Ray 02/17/17 1527 Signed Impressions: Service Date/Time: Friday, February 17, 2017 15:46 - CONCLUSION: 1. Mild soft-tissue swelling involving the left fourth and fifth digits. 2. No acute fracture, dislocation or erosive changes. 3. Mild degenerative changes involving the left first metatarsophalangeal joint. Mike Naylor MD Foot MRI 02/17/17 0000 Signed Impressions: Service Date/Time: Friday, February 17, 2017 17:51 - CONCLUSION: 1. Deep soft tissue ulcer plantar to the fourth metatarsophalangeal joint and with suspected osteomyelitis of the fourth metatarsal head and proximal phalangeal base. No abscess. 2. Chronic appearing subcutaneous fluid collection of the heel pad, nonspecific but could be related to old trauma. An acute abscess is doubted. The underlying bone is normal. 3. Mild marrow edema of the navicular that is likely reactive. Mild navicular/cuneiform and talonavicular osteoarthritis noted. Navicular osteomyelitis is doubted. Og Paz MD A/P Problem List: (1) Diabetic foot infection Status: Chronic Plan: - Pt has had a small open wound on the plantar aspect of his foot for the last 2 -3 months. - He reports that he has been on 2 or 3 rounds of different antibiotics, the last of which was Bactrim (he is unable to recall the previous Abx) - Over the last 2 weeks the wound has been worsening despite debridement by podiatry per the pt. - Then two days ago he noted more swelling and erythema on the dorsal aspect of the foot. - Pt sent to the ED for IV Abx and MRI - MRI Foots (02/17) --> Deep soft tissue ulcer plantar to the fourth metatarsophalangeal joint and with suspected osteomyelitis of the fourth metatarsal head and proximal phalangeal base. No abscess. Chronic appearing subcutaneous fluid collection of the heel pad, nonspecific but could be related to old trauma. An acute abscess is doubted. The underlying bone is normal. Mild marrow edema of the navicular that is likely reactive. Mild navicular/cuneiform and talonavicular osteoarthritis noted. Navicular osteomyelitis is doubted. - Pt reports that a wound culture was taken at the position classification specialist office Going for surgery today with Dr Leiva. will f/u surgical cx's. will call podiatry office tomorrow for any cx result. cont current abx for now. (2) Diabetes mellitus Status: Chronic Plan: - A1c was around 8.7 in December 2016 per pt. - SSI and lower dose Levemir (3) Diabetic neuropathy Status: Chronic Plan: - Pt has started Lyrica over last month or 2. - Gabapentin caused too much fatigue at higher doses. (4) Elevated cholesterol Status: Chronic Plan: cont rx (5) Hypertension Status: Chronic Plan: cont rx Problem Qualifiers (1) Diabetes mellitus: Qualified Code: E11.42 - Type 2 diabetes mellitus with diabetic polyneuropathy , with long-term current use of insulin (2) Diabetic neuropathy: Milad Parry MD Feb 19, 2017 10:38
[2017-02-19] MEDS ORDERED: PHARMACY ORDERED LAB ONE (11:45)
[2017-02-19 12:00] VITALS: BP 113/72; PULSE 87; RESP 18; TEMP 98.7; O2SAT 94
[2017-02-19] MEDS ORDERED: ONDANSETRON HCL 4 MG/2 ML VIAL IV PUSH ONE (12:00)
[2017-02-19] MEDS ORDERED: PHENYLEPH/NS 1000 MCG/10 ML SYR IV ONE (12:00)
[2017-02-19] MEDS ORDERED: PROPOFOL 200 MG/20 ML AMP IV ONE (12:00)
[2017-02-19 16:00] VITALS: BP 107/65; PULSE 76; RESP 18; TEMP 98.1; O2SAT 96
[2017-02-19] MEDS ORDERED: FAMOTIDINE 20 MG/2 ML VIAL ONE (19:03)
[2017-02-19] MEDS ORDERED: METOCLOPRAMIDE HCL 10 MG/2 ML VIAL ONE (19:04)
--- NOTE | 2017-02-19 19:19 | HHI.PR ---
Immediate Post Op Note Procedure Date: Feb 19, 2017 Pre Op Diagnosis: Osteomyelitis Left 4th base of proximal phalanx and 4th metatarsal head Post Op Diagnosis: same Surgeon: John Leiva DPM Correctional Case Manager(s): Staff Procedure: Partial Left 4th ray amputation Findings: Consistent with diagnosis. There is a plantar ulceration to sub-4th met head area with mild purulent drainage extending to plantar midfoot area. Plantar wound excised and incision extended to plantar midfoot area. Base of proximal phalanx of 4th toe identified and removed, as well and distal 4th metatarsal with bone transected at neck/shaft junction. Bone removed and sent to pathology. Bone from residual 4th metatarsal and residual digit proximal phalanx sent to pathology as bone biopsy. Culture taken (swab) Irrigation with 3L NS, followed by partial closure with central wound area left open and packed with 1/2'' nugauze packing. Dressing with 4x4, abd, soft roll, renee L foot. NWB R foot. Will evaluate wound and determine if further surgery required vs daily wound care with packing changes for discharge. Complications: None Specimen(s) removed: 1. bone 4th met head and 4th base of proximal phalanx to pathology 2. bone residual 4th metatarsal for bone biopsy 3. bone residual 4th proximal phalanx for bone biopsy 4. Culture swab L foot Estimated blood loss: minimal Anesthesia: General Drains: None IVF Tourniquet time (min at mmHg) L ankle @ 250mmHg x 38 minutes Patient to: PACU Patient Condition: Good Date/Time of Procedure: SEE SURGICAL CARE RECORD John Leiva DPM Feb 19, 2017 19:19
[2017-02-19] MEDS ORDERED: MIDAZOLAM HCL 2 MG/2 ML VIAL ONE (20:22)
[2017-02-19] MEDS ORDERED: DO NOT ADM ANY ANTICOAGULANT DRUGS PRN (20:45)
--- NOTE | 2017-02-19 21:14 | RADRPT ---
EXAM DATE/TIME: 02/19/2017 20:30 [facility] COMPARISON: MRI FOOT LEFT W & W/O CONTRAST, February 17, 2017, 17:51. FOOT LEFT COMPLETE ([id number]), February 17, 2017, 1 5:46. INDICATIONS : Post op left foot. MEDICAL HISTORY : None. SURGICAL HISTORY : None. ENCOUNTER: Initial ACUITY: 1 day PAIN SCORE: 10/10 LOCATION: Left foot. FINDINGS: Proximal half of the fourth to proximal phalanx has been resected. The fourth metatarsal has been res ected at the level of the distal shaft. Bone graft material and small bubbles of postoperative gas ar e seen within the surgical defect. No acute complication demonstrated. CONCLUSION: Interim bone resection on both sides of the fourth metatarsophalangeal joint as above. No acute compl ication demonstrated. Og Paz MD on February 19, 2017 at 21:08 Board Certified Radiologist. This report was verified electronically.
[2017-02-19 21:22] VITALS: BP_SYST 108; BP_SYST 118; BP_DIAS 65; BP_DIAS 71; PULSE 71; PULSE 72; RESP 17; TEMP 96.9; TEMP 98.2; O2SAT 95
[2017-02-19] MEDS: ATORVASTATIN 80 MG TAB PO SCH (21:48)
[2017-02-19] MEDS: DILTIAZEM-CD 120 MG CAP ER PO SCH (21:48)
[2017-02-20 00:17] VITALS: BP 110/69; PULSE 89; RESP 18; TEMP 97.8; O2SAT 91
[2017-02-20] MEDS: PIPERACIL-TAZO 3.375 GM PREMIX 50 ML IV SCH ×3 (00:39→17:24)
[2017-02-20] MEDS: INSULIN ASPART SUPPLEMENTAL SCALE SQ SCH ×5 (06:00→21:00)
[2017-02-20 08:00] VITALS: BP 124/76; PULSE 78; RESP 18; TEMP 97.4; O2SAT 93
[2017-02-20] MEDS: RAMIPRIL 5 MG CAP PO SCH (09:04)
[2017-02-20] MEDS: LORATADINE 10 MG TAB PO SCH (09:04)
[2017-02-20] MEDS: INSULIN DETEMIR 100 UNITS/ML VIAL SQ SCH ×2 (09:07→21:00)
--- NOTE | 2017-02-20 09:38 | HHI.PR ---
Subjective Remarks Pt underwent partial left 4th ray amputation on 02/19/[address] Hernandez Pts cough is improved today Denies any specific complaints. Objective Vitals Vital Signs Date Time Temp Pulse Resp B/P Pulse Ox O2 Delivery O2 Flow Rate FiO2 02/20/17 08:00 97.4 78 18 124/76 93 02/20/17 00:17 97.8 89 18 110/69 91 02/19/17 21:22 96.9 71 17 108/71 95 02/19/17 20:45 98.0 89 20 121/79 95 Room Air 02/19/17 20:30 80 19 124/77 98 Nasal Cannula 3 02/19/17 20:17 98.2 80 15 122/74 99 Nasal Cannula 3 02/19/17 16:00 98.1 76 18 107/65 96 02/19/17 12:00 98.7 87 18 113/72 94 02/19/17 02/19/17 02/20/17 15:00 23:00 07:00 Intake Total 730 ml 1380 ml 660 ml Output Total 25 ml 1200 ml Balance 730 ml 1355 ml -540 ml Intake Oral 480 ml 480 ml 360 ml IV Total 250 ml 300 ml Other 900 ml Output Urine Total 0 ml 1200 ml Estimated Blood Loss 25 ml # Voids 2 1 # Bowel Movements 0 Result Diagram: 02/19/17 0532 02/19/17 0532 Other Results Laboratory Tests Test 02/19/17 02/19/17 05:32 11:20 White Blood Count 7.5 TH/MM3 Red Blood Count 4.10 MIL/MM3 Hemoglobin 11.0 GM/DL Hematocrit 32.1 % Mean Corpuscular Volume 78.3 FL Mean Corpuscular Hemoglobin 26.8 PG Mean Corpuscular Hemoglobin 34.2 % Concent Red Cell Distribution Width 13.8 % Platelet Count 231 TH/MM3 Mean Platelet Volume 8.0 FL Neutrophils (%) (Auto) 62.3 % Lymphocytes (%) (Auto) 23.4 % Monocytes (%) (Auto) 9.8 % Eosinophils (%) (Auto) 4.1 % Basophils (%) (Auto) 0.4 % Neutrophils # (Auto) 4.7 TH/MM3 Lymphocytes # (Auto) 1.8 TH/MM3 Monocytes # (Auto) 0.7 TH/MM3 Eosinophils # (Auto) 0.3 TH/MM3 Basophils # (Auto) 0.0 TH/MM3 CBC Comment DIFF FINAL Differential Comment Sodium Level 141 MEQ/L Potassium Level 4.0 MEQ/L Chloride Level 106 MEQ/L Carbon Dioxide Level 27.3 MEQ/L Anion Gap 8 MEQ/L Blood Urea Nitrogen 19 MG/DL Creatinine 0.95 MG/DL Estimat Glomerular Filtration 84 ML/MIN Rate Random Glucose 109 MG/DL Calcium Level 8.6 MG/DL Magnesium Level 2.3 MG/DL Vancomycin Level Trough 11.4 MCG/ML Imaging Last Impressions Foot X-Ray 02/17/17 1527 Signed Impressions: Service Date/Time: Friday, February 17, 2017 15:46 - CONCLUSION: 1. Mild soft-tissue swelling involving the left fourth and fifth digits. 2. No acute fracture, dislocation or erosive changes. 3. Mild degenerative changes involving the left first metatarsophalangeal joint. Mike Naylor MD Foot MRI 02/17/17 0000 Signed Impressions: Service Date/Time: Friday, February 17, 2017 17:51 - CONCLUSION: 1. Deep soft tissue ulcer plantar to the fourth metatarsophalangeal joint and with suspected osteomyelitis of the fourth metatarsal head and proximal phalangeal base. No abscess. 2. Chronic appearing subcutaneous fluid collection of the heel pad, nonspecific but could be related to old trauma. An acute abscess is doubted. The underlying bone is normal. 3. Mild marrow edema of the navicular that is likely reactive. Mild navicular/cuneiform and talonavicular osteoarthritis noted. Navicular osteomyelitis is doubted. Og Paz MD Objective Remarks General: NAD, AAOx3 Chest: CTA Cardiac: Regular Abd: +BS, soft ND/NT Ext: Left foot bandages are c/d/i A/P Problem List: (1) Diabetic foot infection Status: Chronic Plan: - Pt has had a small open wound on the plantar aspect of his foot for the last 2 -3 months. - He reports that he has been on 2 or 3 rounds of different antibiotics, the last of which was Bactrim (he is unable to recall the previous Abx) - Over the last 2 weeks the wound has been worsening despite debridement by podiatry per the pt. - Then two days ago he noted more swelling and erythema on the dorsal aspect of the foot. - Pt sent to the ED for IV Abx and MRI - MRI Foots (02/17) --> Deep soft tissue ulcer plantar to the fourth metatarsophalangeal joint and with suspected osteomyelitis of the fourth metatarsal head and proximal phalangeal base. No abscess. Chronic appearing subcutaneous fluid collection of the heel pad, nonspecific but could be related to old trauma. An acute abscess is doubted. The underlying bone is normal. Mild marrow edema of the navicular that is likely reactive. Mild navicular/cuneiform and talonavicular osteoarthritis noted. Navicular osteomyelitis is doubted. - Pt reports that a wound culture was taken at the asbestos shingle roofer office. I called and left a message at Dr. Palomares office today inquiring about the culture results and they will call me back today if anything has resulted yet. - Pt underwent Partial Left 4th ray amputation on 02/19/[address] Leiva - Intraoperative cultures taken as well. - Pathology pending. - Cont. on Vancomycin and Zosyn for now - Pt may need PICC line placement for continued IV abx as an outpt as well. (2) Diabetes mellitus Status: Chronic Plan: - A1c was around 8.7 in December 2016 per pt. - SSI and lower dose Levemir - Pt didn't receive his Levemir last night due to a BS of 90 and BS this morning is 346 (3) Diabetic neuropathy Status: Chronic Plan: - Pt has started Lyrica over last month or 2. - Gabapentin caused too much fatigue at higher doses. (4) Elevated cholesterol Status: Chronic Plan: cont rx (5) Hypertension Status: Chronic Plan: cont rx Assessment and Plan Patient examined. Assessment and plan formulated with Frieda Pastor PA-C. I agree with the above. partial 4rth ray amputation. await cx's the picc and c iv abx Problem Qualifiers (1) Diabetes mellitus: Qualified Code: E11.42 - Type 2 diabetes mellitus with diabetic polyneuropathy , with long-term current use of insulin (2) Diabetic neuropathy: Frieda Pastor Feb 20, 2017 09:37 Milad Parry MD Feb 20, 2017 10:50
[2017-02-20 12:00] VITALS: BP 122/75; PULSE 97; RESP 18; TEMP 97.9; O2SAT 95
[2017-02-20] MEDS: ONDANSETRON HCL 4 MG/2 ML VIAL IV PUSH PRN (12:05)
[2017-02-20] MEDS: VANCOMYCIN INJ 1,250 MG in SODIUM CHLOR 0.9% 250 ML INJ 250 ML IV SCH (12:05)
[2017-02-20] MEDS ORDERED: DEXTROSE 50% IN WATER 50 ML VIAL(D50) IV PUSH PRN (13:45)
[2017-02-20] MEDS ORDERED: GLUCAGON 1 MG/ML VIAL OTHER PRN (13:45)
[2017-02-20 16:00] VITALS: BP 99/64; PULSE 82; RESP 17; TEMP 97.6; O2SAT 94
--- NOTE | 2017-02-20 16:59 | PD.CONS ---
History of Present Illness Service Podiatry Consult Requested By Reason for Consult R foot infection Primary Care Physician Edgar Yeung M.D. Diagnoses: History of Present Illness R foot ulcer progressively worsening with increasing drainage and redness, sent in by Dr Davies. Previous history of osteomyelitis and infection with bone removal and long-term IV antibiotics for opposite foot. 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 Glucophage (Metformin HCl) 1,000 Mg Tab 1,000 Mg PO BID Ramipril 5mg/d Glucometer Test Strips (Glucomteststrips) Box 1 Strips XX QID Check 4 times a day. On insulin. 2 boxes Refill 12 times Viagra (Sildenafil Citrate) 50 Mg Tab 50 Mg PO ONCE PRN Levemir Insulin (Insulin Detemir) 100 Units/Ml Inj 40 Units in AM, 60 units in evening Novolog ssi Jardiance (Empagliflozin) 25 Mg PO DAILY Crestor (Rosuvastatin Calcium) 40 Mg Tab 1 Tab PO HS Lyrica 100mg in evening. Active Ordered Medications Current Medications Medications (Trade) Dose Ordered Sig/Yara Route Start Time Stop Time Status Last Admin Pharmacy Profile Note 0 ml @ 0 mls/hr UNSCH OTHER 02/17/17 20:15 (Zosyn 3.375 Gm Premix) 50 ml @ 100 mls/hr Q8H IV 02/18/17 00:00 02/20/17 09:05 (Levemir Inj) 25 units Q12HR SQ 02/17/17 21:00 02/20/17 09:07 (Cardizem Cd) 120 mg HS PO 02/17/17 21:00 02/19/17 21:48 (Lipitor) 80 mg HS PO 02/17/17 21:00 02/19/17 21:48 Ramipril 5 mg 5 mg DAILY PO 02/18/17 09:00 02/20/17 09:04 (Vancomycin Inj/ NS 250 ml Inj) 262.5 ml @ 250 mls/hr Q12H IV 02/18/17 00:00 02/20/17 12:05 (Zofran Inj) 4 mg Q6HR PRN IV PUSH 02/17/17 22:15 02/20/17 12:05 (Claritin) 10 mg DAILY PO 02/20/17 09:00 02/20/17 09:04 Miscellaneous Information ALL NURSING DEPARTME... 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 Palpable pedal pulses. Laboratory Date/Time Procedure Status Source Growth 02/19/17 19:27 Gram Stain - Final Resulted Wound Foot 02/19/17 19:27 Wound Culture - Preliminary Resulted Viridans Streptococcus Grp 02/19/17 19:27 Fungal Smear - Final Resulted Wound Foot NO FUNGAL ELEMENTS SEEN. 02/19/17 19:27 Fungal Culture Resulted Wound Foot Pending 02/19/17 19:27 Acid Fast Stain - Final Resulted Wound Foot NO ACID FAST BACILLI SEEN 02/19/17 19:27 Mycobacterial Culture Resulted Wound Foot Pending 02/17/17 16:30 Aerobic Blood Culture - Preliminary Resulted Blood Peripheral NO GROWTH IN 3 DAYS 02/17/17 16:30 Anaerobic Blood Culture - Preliminary Resulted Blood Peripheral NO GROWTH IN 3 DAYS Result Diagram: 02/19/17 0532 02/19/17 0532 Imaging Last Impressions Foot X-Ray 02/19/17 0000 Signed Impressions: Service Date/Time: February 20:30 - CONCLUSION: Interim bone resection on both sides of the fourth metatarsophalangeal joint as above. No acute complication demonstrated. Og Paz MD Foot MRI 02/17/17 0000 Signed Impressions: Service Date/Time: Friday, February 17, 2017 17:51 - CONCLUSION: 1. Deep soft tissue ulcer plantar to the fourth metatarsophalangeal joint and with suspected osteomyelitis of the fourth metatarsal head and proximal phalangeal base. No abscess. 2. Chronic appearing subcutaneous fluid collection of the heel pad, nonspecific but could be related to old trauma. An acute abscess is doubted. The underlying bone is normal. 3. Mild marrow edema of the navicular that is likely reactive. Mild navicular/cuneiform and talonavicular osteoarthritis noted. Navicular osteomyelitis is doubted. Og Paz MD Assessment and Plan Assessment and Plan Osteomyelitis L 4th met head and base of toe Plan to OR for partial 4th ray amputation John Leiva DPM Feb 20, 2017 16:59
[2017-02-20 20:00] VITALS: BP 121/68; PULSE 79; RESP 20; TEMP 97.2; O2SAT 93
[2017-02-20] MEDS: ATORVASTATIN 80 MG TAB PO SCH (21:18)
[2017-02-20] MEDS: DILTIAZEM-CD 120 MG CAP ER PO SCH (21:18)
[2017-02-21] VITALS: BP 116/69; PULSE 83; RESP 20; TEMP 97.5; O2SAT 92
[2017-02-21] MEDS: PIPERACIL-TAZO 3.375 GM PREMIX 50 ML IV SCH ×4 (00:20→23:46)
[2017-02-21] MEDS: VANCOMYCIN INJ 1,250 MG in SODIUM CHLOR 0.9% 250 ML INJ 250 ML IV SCH ×2 (00:21→12:10)
[2017-02-21 05:53] LABS: BICARBONATE 29.4 MEQ/L (21.0-32.0); MAGNESIUM 1.9 MG/DL (1.5-2.5); POTASSIUM 3.7 MEQ/L (3.5-5.1)
[2017-02-21] MEDS: INSULIN ASPART SUPPLEMENTAL SCALE SQ SCH ×4 (07:00→21:37)
[2017-02-21 08:00] VITALS: BP 120/77; PULSE 85; RESP 17; TEMP 96.5; O2SAT 95
[2017-02-21] MEDS: LORATADINE 10 MG TAB PO SCH (08:47)
[2017-02-21] MEDS: RAMIPRIL 5 MG CAP PO SCH (08:47)
[2017-02-21] MEDS: INSULIN DETEMIR 100 UNITS/ML VIAL SQ SCH ×2 (08:56→21:38)
[2017-02-21 12:00] VITALS: BP 119/78; PULSE 75; RESP 17; TEMP 96.5; O2SAT 96
[2017-02-21] MEDS: ONDANSETRON HCL 4 MG/2 ML VIAL IV PUSH PRN (12:16)
[2017-02-21 16:00] VITALS: BP 113/69; PULSE 82; RESP 17; TEMP 97.1; O2SAT 93
--- NOTE | 2017-02-21 17:31 | HHI.PR ---
Subjective Remarks had some pain in toes last night. Objective Vitals heart reg lung cta abd s/nt ext left foot heavily bandaged. Vital Signs Date Time Temp Pulse Resp B/P Pulse Ox O2 Delivery O2 Flow Rate FiO2 02/21/17 12:00 96.5 75 17 119/78 96 02/21/17 08:00 96.5 85 17 120/77 95 02/21/17 00:00 97.5 83 20 116/69 92 02/20/17 20:00 97.2 79 20 121/68 93 02/20/17 02/20/17 02/21/17 15:00 23:00 07:00 Intake Total 1460 ml 720 ml 240 ml Balance 1460 ml 720 ml 240 ml Intake Oral 1160 ml 720 ml 240 ml IV Total 300 ml # Voids 2 1 2 # Bowel Movements 1 Result Diagram: 02/19/17 0532 02/21/17 0403 Imaging Last Impressions Foot X-Ray 02/17/17 1527 Signed Impressions: Service Date/Time: Friday, February 17, 2017 15:46 - CONCLUSION: 1. Mild soft-tissue swelling involving the left fourth and fifth digits. 2. No acute fracture, dislocation or erosive changes. 3. Mild degenerative changes involving the left first metatarsophalangeal joint. Mike Naylor MD Foot MRI 02/17/17 0000 Signed Impressions: Service Date/Time: Friday, February 17, 2017 17:51 - CONCLUSION: 1. Deep soft tissue ulcer plantar to the fourth metatarsophalangeal joint and with suspected osteomyelitis of the fourth metatarsal head and proximal phalangeal base. No abscess. 2. Chronic appearing subcutaneous fluid collection of the heel pad, nonspecific but could be related to old trauma. An acute abscess is doubted. The underlying bone is normal. 3. Mild marrow edema of the navicular that is likely reactive. Mild navicular/cuneiform and talonavicular osteoarthritis noted. Navicular osteomyelitis is doubted. Og Paz MD A/P Problem List: (1) Diabetic foot infection Status: Chronic Plan: - Pt has had a small open wound on the plantar aspect of his foot for the last 2 -3 months. - He reports that he has been on 2 or 3 rounds of different antibiotics, the last of which was Bactrim (he is unable to recall the previous Abx) - Over the last 2 weeks the wound has been worsening despite debridement by podiatry per the pt. - Then two days ago he noted more swelling and erythema on the dorsal aspect of the foot. - Pt sent to the ED for IV Abx and MRI - MRI Foots (02/17) --> Deep soft tissue ulcer plantar to the fourth metatarsophalangeal joint and with suspected osteomyelitis of the fourth metatarsal head and proximal phalangeal base. No abscess. Chronic appearing subcutaneous fluid collection of the heel pad, nonspecific but could be related to old trauma. An acute abscess is doubted. The underlying bone is normal. Mild marrow edema of the navicular that is likely reactive. Mild navicular/cuneiform and talonavicular osteoarthritis noted. Navicular osteomyelitis is doubted. - Pt reports that a wound culture was taken at the court interpreter office. I called and left a message at Dr. Palomares office inquiring about the culture results - Pt underwent Partial Left 4th ray amputation on 02/19/[address] Leiva - Intraoperative cultures taken so far growing strep viridans - Pathology pending. -- cont abx and narrow as cx final and plan for picc on Thursday (2) Diabetes mellitus Status: Chronic Plan: - A1c was around 8.7 in December 2016 per pt. - SSI and lower dose Levemir - (3) Diabetic neuropathy Status: Chronic Plan: - Pt has started Lyrica over last month or 2. - Gabapentin caused too much fatigue at higher doses. (4) Elevated cholesterol Status: Chronic Plan: cont rx (5) Hypertension Status: Chronic Plan: cont rx Problem Qualifiers (1) Diabetes mellitus: Qualified Code: E11.42 - Type 2 diabetes mellitus with diabetic polyneuropathy , with long-term current use of insulin (2) Diabetic neuropathy: Milad Parry MD Feb 21, 2017 17:30
[2017-02-21 20:00] VITALS: BP 112/70; PULSE 80; RESP 20; TEMP 97.4; O2SAT 94
[2017-02-21] MEDS: ATORVASTATIN 80 MG TAB PO SCH (20:52)
[2017-02-21] MEDS: DILTIAZEM-CD 120 MG CAP ER PO SCH (20:52)
--- NOTE | 2017-02-21 22:11 | PD.POD ---
Subjective Podiatric Problems L foot osteomyelitis 4th metatarsal head and base of 4th proximal phalanx, s/p Amputation partial L 4th ray 02/19/17 [place] Past Med/Surg/Social History Past Medical History Endocrine: REPORTS HX OF: Diabetes mellitus (1997) Cardiovascular: REPORTS HX OF: Hyperlipidemia (2004), Myocardial infarction ( 1999), Other CV history (palpatations - 2013 SVT at [facility]) Gastrointestinal: REPORTS HX OF: Other GI history (Nausea & vomitting - present ) Musculoskeletal: REPORTS HX OF: Osteoarthritis (2008) Past Surgical History HEENT: REPORTS HX OF: Tonsillectomy (1971) Musculoskeletal: REPORTS HX OF: Other musculoskeletal srg (Carpal tunnel release 1989) Social History Smoking Status: Never Smoker Objective Vital Signs Vital Signs Date Time Temp Pulse Resp B/P Pulse Ox O2 Delivery O2 Flow Rate FiO2 02/21/17 20:00 97.4 80 20 112/70 94 02/21/17 16:00 97.1 82 17 113/69 93 02/21/17 12:00 96.5 75 17 119/78 96 02/21/17 08:00 96.5 85 17 120/77 95 02/21/17 00:00 97.5 83 20 116/69 92 Coded Allergies: No Known Allergies (Verified , 05/24/16) Medications and IVs Current Medications Medications (Trade) Dose Ordered Sig/Yara Route Start Time Stop Time Status Last Admin Pharmacy Profile Note 0 ml @ 0 mls/hr UNSCH OTHER 02/17/17 20:15 (Zosyn 3.375 Gm Premix) 50 ml @ 100 mls/hr Q8H IV 02/18/17 00:00 02/21/17 17:28 (Levemir Inj) 25 units Q12HR SQ 02/17/17 21:00 02/21/17 21:38 (Cardizem Cd) 120 mg HS PO 02/17/17 21:00 02/21/17 20:52 (Lipitor) 80 mg HS PO 02/17/17 21:00 02/21/17 20:52 Ramipril 5 mg 5 mg DAILY PO 02/18/17 09:00 02/21/17 08:47 (Vancomycin Inj/ NS 250 ml Inj) 262.5 ml @ 250 mls/hr Q12H IV 02/18/17 00:00 02/21/17 12:10 (Zofran Inj) 4 mg Q6HR PRN IV PUSH 02/17/17 22:15 02/21/17 12:16 (Claritin) 10 mg DAILY PO 02/20/17 09:00 02/21/17 08:47 (D50w (Vial) Inj) 25 ml UNSCH PRN IV PUSH 02/20/17 13:45 (Glucagon Inj) 1 mg UNSCH PRN OTHER 02/20/17 13:45 ([place] 7.5-325 Mg) 1 tab Q4H PRN PO 02/21/17 16:45 Other Results Microbiology Date/Time Procedure Status Source Growth 02/19/17 19:27 Gram Stain - Final Complete Wound Foot 02/19/17 19:27 Wound Culture - Final Complete Viridans Streptococcus Grp 02/19/17 19:27 Fungal Smear - Final Resulted Wound Foot NO FUNGAL ELEMENTS SEEN. 02/19/17 19:27 Fungal Culture Resulted Wound Foot Pending 02/19/17 19:27 Acid Fast Stain - Final Resulted Wound Foot NO ACID FAST BACILLI SEEN 02/19/17 19:27 Mycobacterial Culture Resulted Wound Foot Pending 02/17/17 16:30 Aerobic Blood Culture - Preliminary Resulted Blood Peripheral NO GROWTH IN 4 DAYS 02/17/17 16:30 Anaerobic Blood Culture - Preliminary Resulted Blood Peripheral NO GROWTH IN 4 DAYS Last Impressions Foot X-Ray 02/19/17 0000 Signed Impressions: Service Date/Time: February 20:30 - CONCLUSION: Interim bone resection on both sides of the fourth metatarsophalangeal joint as above. No acute complication demonstrated. Og Paz MD Foot MRI 02/17/17 0000 Signed Impressions: Service Date/Time: Friday, February 17, 2017 17:51 - CONCLUSION: 1. Deep soft tissue ulcer plantar to the fourth metatarsophalangeal joint and with suspected osteomyelitis of the fourth metatarsal head and proximal phalangeal base. No abscess. 2. Chronic appearing subcutaneous fluid collection of the heel pad, nonspecific but could be related to old trauma. An acute abscess is doubted. The underlying bone is normal. 3. Mild marrow edema of the navicular that is likely reactive. Mild navicular/cuneiform and talonavicular osteoarthritis noted. Navicular osteomyelitis is doubted. Og Paz MD Objective Remarks Laboratory Tests Test 02/17/17 02/17/17 02/17/17 02/19/17 16:18 16:20 20:25 05:32 Lactic Acid Level 1.2 mmol/L Total Bilirubin 0.8 MG/DL Aspartate Amino Transf 8 U/L (AST/SGOT) Alanine Aminotransferase 17 U/L (ALT/SGPT) Alkaline Phosphatase 66 U/L Total Protein 7.5 GM/DL Albumin 3.3 GM/DL Prothrombin Time 11.3 SEC Prothromb Time International 1.0 RATIO Ratio Activated Partial 32.1 SEC Thromboplast Time White Blood Count 7.5 TH/MM3 Red Blood Count 4.10 MIL/MM3 Hemoglobin 11.0 GM/DL Hematocrit 32.1 % Mean Corpuscular Volume 78.3 FL Mean Corpuscular Hemoglobin 26.8 PG Mean Corpuscular Hemoglobin 34.2 % Concent Red Cell Distribution Width 13.8 % Platelet Count 231 TH/MM3 Mean Platelet Volume 8.0 FL Neutrophils (%) (Auto) 62.3 % Lymphocytes (%) (Auto) 23.4 % Monocytes (%) (Auto) 9.8 % Eosinophils (%) (Auto) 4.1 % Basophils (%) (Auto) 0.4 % Neutrophils # (Auto) 4.7 TH/MM3 Lymphocytes # (Auto) 1.8 TH/MM3 Monocytes # (Auto) 0.7 TH/MM3 Eosinophils # (Auto) 0.3 TH/MM3 Basophils # (Auto) 0.0 TH/MM3 CBC Comment DIFF FINAL Differential Comment Test 02/19/17 02/21/17 11:20 04:03 Vancomycin Level Trough 11.4 MCG/ML Sodium Level 142 MEQ/L Potassium Level 3.7 MEQ/L Chloride Level 107 MEQ/L Carbon Dioxide Level 29.4 MEQ/L Anion Gap 6 MEQ/L Blood Urea Nitrogen 18 MG/DL Creatinine 0.96 MG/DL Estimat Glomerular Filtration 83 ML/MIN Rate Random Glucose 153 MG/DL Calcium Level 8.5 MG/DL Magnesium Level 1.9 MG/DL Physical Exam Remarks L plantar foot with packing in place and slight bloody drainage upon removal. Sutures intact distally and proximally to packed area. Reduced erythema and edema noted to dorsal foot Assessment & Plan A/P L foot osteomyelitis 4th metatarsal head and base of 4th proximal phalanx, s/p Amputation partial L 4th ray 02/19/17 [place] Plan to order wound vac to apply to L foot tomorrow and initiate vac dressing changes Dressing changed today. No further surgery planned at this time Will need home wound vac changes set up prior to d/c. Bone biopsy pending to determine length of need for IV antibiotics John Leiva DPM Feb 21, 2017 22:11
[2017-02-22] VITALS: BP 103/68; PULSE 82; RESP 20; TEMP 97.8; O2SAT 95
[2017-02-22] MEDS: ONDANSETRON HCL 4 MG/2 ML VIAL IV PUSH PRN ×2 (00:20→11:59)
[2017-02-22] MEDS: VANCOMYCIN INJ 1,250 MG in SODIUM CHLOR 0.9% 250 ML INJ 250 ML IV SCH ×2 (00:20→12:01)
[2017-02-22] MEDS: INSULIN ASPART SUPPLEMENTAL SCALE SQ SCH ×4 (06:37→21:58)
[2017-02-22 08:00] VITALS: BP 123/79; PULSE 67; RESP 16; TEMP 96.7; O2SAT 97
[2017-02-22] MEDS: LORATADINE 10 MG TAB PO SCH (08:50)
[2017-02-22] MEDS: RAMIPRIL 5 MG CAP PO SCH (08:50)
[2017-02-22] MEDS: PIPERACIL-TAZO 3.375 GM PREMIX 50 ML IV SCH ×2 (08:50→17:01)
[2017-02-22] MEDS: INSULIN DETEMIR 100 UNITS/ML VIAL SQ SCH ×2 (08:52→21:57)
--- NOTE | 2017-02-22 11:28 | PD.POD ---
Subjective Podiatric Problems L foot osteomyelitis 4th metatarsal head and base of 4th proximal phalanx, s/p Amputation partial L 4th ray 02/19/17 [place] Past Med/Surg/Social History Past Medical History Endocrine: REPORTS HX OF: Diabetes mellitus (1997) Cardiovascular: REPORTS HX OF: Hyperlipidemia (2004), Myocardial infarction ( 1999), Other CV history (palpatations - 2013 SVT at [facility]) Gastrointestinal: REPORTS HX OF: Other GI history (Nausea & vomitting - present ) Musculoskeletal: REPORTS HX OF: Osteoarthritis (2008) Past Surgical History HEENT: REPORTS HX OF: Tonsillectomy (1971) Musculoskeletal: REPORTS HX OF: Other musculoskeletal srg (Carpal tunnel release 1989) Social History Smoking Status: Never Smoker Objective Vital Signs Vital Signs Date Time Temp Pulse Resp B/P Pulse Ox O2 Delivery O2 Flow Rate FiO2 02/22/17 08:00 96.7 67 16 123/79 97 02/22/17 00:00 97.8 82 20 103/68 95 02/21/17 20:00 97.4 80 20 112/70 94 02/21/17 16:00 97.1 82 17 113/69 93 02/21/17 12:00 96.5 75 17 119/78 96 Coded Allergies: No Known Allergies (Verified , 05/24/16) Medications and IVs Current Medications Medications (Trade) Dose Ordered Sig/Yara Route Start Time Stop Time Status Last Admin Pharmacy Profile Note 0 ml @ 0 mls/hr UNSCH OTHER 02/17/17 20:15 (Zosyn 3.375 Gm Premix) 50 ml @ 100 mls/hr Q8H IV 02/18/17 00:00 02/22/17 08:50 (Levemir Inj) 25 units Q12HR SQ 02/17/17 21:00 02/22/17 08:52 (Cardizem Cd) 120 mg HS PO 02/17/17 21:00 02/21/17 20:52 (Lipitor) 80 mg HS PO 02/17/17 21:00 02/21/17 20:52 Ramipril 5 mg 5 mg DAILY PO 02/18/17 09:00 02/22/17 08:50 (Vancomycin Inj/ NS 250 ml Inj) 262.5 ml @ 250 mls/hr Q12H IV 02/18/17 00:00 02/22/17 00:20 (Zofran Inj) 4 mg Q6HR PRN IV PUSH 02/17/17 22:15 02/22/17 00:20 (Claritin) 10 mg DAILY PO 02/20/17 09:00 02/22/17 08:50 (D50w (Vial) Inj) 25 ml UNSCH PRN IV PUSH 02/20/17 13:45 (Glucagon Inj) 1 mg UNSCH PRN OTHER 02/20/17 13:45 ([place] 7.5-325 Mg) 1 tab Q4H PRN PO 02/21/17 16:45 Other Results Last Impressions Foot X-Ray 02/19/17 0000 Signed Impressions: Service Date/Time: February 20:30 - CONCLUSION: Interim bone resection on both sides of the fourth metatarsophalangeal joint as above. No acute complication demonstrated. Og Paz MD Foot MRI 02/17/17 0000 Signed Impressions: Service Date/Time: Friday, February 17, 2017 17:51 - CONCLUSION: 1. Deep soft tissue ulcer plantar to the fourth metatarsophalangeal joint and with suspected osteomyelitis of the fourth metatarsal head and proximal phalangeal base. No abscess. 2. Chronic appearing subcutaneous fluid collection of the heel pad, nonspecific but could be related to old trauma. An acute abscess is doubted. The underlying bone is normal. 3. Mild marrow edema of the navicular that is likely reactive. Mild navicular/cuneiform and talonavicular osteoarthritis noted. Navicular osteomyelitis is doubted. Og Paz MD Objective Remarks Laboratory Tests Test 02/17/17 02/17/17 02/17/17 02/19/17 16:18 16:20 20:25 05:32 Lactic Acid Level 1.2 mmol/L Total Bilirubin 0.8 MG/DL Aspartate Amino Transf 8 U/L (AST/SGOT) Alanine Aminotransferase 17 U/L (ALT/SGPT) Alkaline Phosphatase 66 U/L Total Protein 7.5 GM/DL Albumin 3.3 GM/DL Prothrombin Time 11.3 SEC Prothromb Time International 1.0 RATIO Ratio Activated Partial 32.1 SEC Thromboplast Time White Blood Count 7.5 TH/MM3 Red Blood Count 4.10 MIL/MM3 Hemoglobin 11.0 GM/DL Hematocrit 32.1 % Mean Corpuscular Volume 78.3 FL Mean Corpuscular Hemoglobin 26.8 PG Mean Corpuscular Hemoglobin 34.2 % Concent Red Cell Distribution Width 13.8 % Platelet Count 231 TH/MM3 Mean Platelet Volume 8.0 FL Neutrophils (%) (Auto) 62.3 % Lymphocytes (%) (Auto) 23.4 % Monocytes (%) (Auto) 9.8 % Eosinophils (%) (Auto) 4.1 % Basophils (%) (Auto) 0.4 % Neutrophils # (Auto) 4.7 TH/MM3 Lymphocytes # (Auto) 1.8 TH/MM3 Monocytes # (Auto) 0.7 TH/MM3 Eosinophils # (Auto) 0.3 TH/MM3 Basophils # (Auto) 0.0 TH/MM3 CBC Comment DIFF FINAL Differential Comment Test 02/19/17 02/21/17 11:20 04:03 Vancomycin Level Trough 11.4 MCG/ML Sodium Level 142 MEQ/L Potassium Level 3.7 MEQ/L Chloride Level 107 MEQ/L Carbon Dioxide Level 29.4 MEQ/L Anion Gap 6 MEQ/L Blood Urea Nitrogen 18 MG/DL Creatinine 0.96 MG/DL Estimat Glomerular Filtration 83 ML/MIN Rate Random Glucose 153 MG/DL Calcium Level 8.5 MG/DL Magnesium Level 1.9 MG/DL Exam-Podiatry Remarks L plantar foot with wound to plantar 4th met head area 2cm x 1cm x 2cm depth, healthy granular appearance. No purulence noted. Incision well approximated with nylon suture Erythema and edema absent. Assessment & Plan A/P L foot osteomyelitis 4th metatarsal head and base of 4th proximal phalanx, s/p Amputation partial L 4th ray 02/19/17 [place] Applied small granufoam wound vac dressing to L foot this morning and will initiate e//Thu vac dressing changes [facility] vac orders filled out and placed in front of chart No further surgery planned at this time Will need home wound vac changes set up prior to d/c. Bone biopsy pending to determine length of need for IV antibiotics. Anticipate 6 weeks needed Follow up in [facility] in 2 weeks. John Leiva DPM Feb 22, 2017 11:28
[2017-02-22 12:00] VITALS: BP 123/79; PULSE 74; RESP 16; TEMP 96.9; O2SAT 96
--- NOTE | 2017-02-22 14:07 | HHI.PR ---
Subjective Remarks pt doing ok. no new complaints Objective Vitals heart reg lung cta abd s/nt ext left foot heavily bandaged Vital Signs Date Time Temp Pulse Resp B/P Pulse Ox O2 Delivery O2 Flow Rate FiO2 02/22/17 12:00 96.9 74 16 123/79 96 02/22/17 08:00 96.7 67 16 123/79 97 02/22/17 00:00 97.8 82 20 103/68 95 02/21/17 20:00 97.4 80 20 112/70 94 02/21/17 16:00 97.1 82 17 113/69 93 02/21/17 02/21/17 02/22/17 15:00 23:00 07:00 Intake Total 780 ml 720 ml 780 ml Balance 780 ml 720 ml 780 ml Intake Oral 480 ml 720 ml 480 ml IV Total 300 ml 0 ml 300 ml # Voids 2 1 1 # Bowel Movements 1 1 Result Diagram: 02/19/17 0532 02/21/17 0403 Imaging Last Impressions Foot X-Ray 02/17/17 1527 Signed Impressions: Service Date/Time: Friday, February 17, 2017 15:46 - CONCLUSION: 1. Mild soft-tissue swelling involving the left fourth and fifth digits. 2. No acute fracture, dislocation or erosive changes. 3. Mild degenerative changes involving the left first metatarsophalangeal joint. Mike Naylor MD Foot MRI 02/17/17 0000 Signed Impressions: Service Date/Time: Friday, February 17, 2017 17:51 - CONCLUSION: 1. Deep soft tissue ulcer plantar to the fourth metatarsophalangeal joint and with suspected osteomyelitis of the fourth metatarsal head and proximal phalangeal base. No abscess. 2. Chronic appearing subcutaneous fluid collection of the heel pad, nonspecific but could be related to old trauma. An acute abscess is doubted. The underlying bone is normal. 3. Mild marrow edema of the navicular that is likely reactive. Mild navicular/cuneiform and talonavicular osteoarthritis noted. Navicular osteomyelitis is doubted. Og Paz MD A/P Problem List: (1) Diabetic foot infection Status: Chronic Plan: - Pt has had a small open wound on the plantar aspect of his foot for the last 2 -3 months. - He reports that he has been on 2 or 3 rounds of different antibiotics, the last of which was Bactrim (he is unable to recall the previous Abx) - Over the last 2 weeks the wound has been worsening despite debridement by podiatry per the pt. - Then two days ago he noted more swelling and erythema on the dorsal aspect of the foot. - Pt sent to the ED for IV Abx and MRI - MRI Foots (02/17) --> Deep soft tissue ulcer plantar to the fourth metatarsophalangeal joint and with suspected osteomyelitis of the fourth metatarsal head and proximal phalangeal base. No abscess. Chronic appearing subcutaneous fluid collection of the heel pad, nonspecific but could be related to old trauma. An acute abscess is doubted. The underlying bone is normal. Mild marrow edema of the navicular that is likely reactive. Mild navicular/cuneiform and talonavicular osteoarthritis noted. Navicular osteomyelitis is doubted. - Pt reports that a wound culture was taken at the clinical informatics educator office. I called and left a message at Dr. Palomares office inquiring about the culture results - Pt underwent Partial Left 4th ray amputation on 02/19/[address] Leiva - Intraoperative cultures taken so far growing strep viridans - Pathology pending to check bone margins - Also we need to call podiatry office and check pending cx taken in office prior to surg -discussed with podiatry who prefers picc and iv abx. I think he could be sent home on rocephin. (2) Diabetes mellitus Status: Chronic Plan: - A1c was around 8.7 in December 2016 per pt. - SSI and lower dose Levemir - (3) Diabetic neuropathy Status: Chronic Plan: - Pt has started Lyrica over last month or 2. - Gabapentin caused too much fatigue at higher doses. (4) Elevated cholesterol Status: Chronic Plan: cont rx (5) Hypertension Status: Chronic Plan: cont rx Problem Qualifiers (1) Diabetes mellitus: Qualified Code: E11.42 - Type 2 diabetes mellitus with diabetic polyneuropathy , with long-term current use of insulin (2) Diabetic neuropathy: Milad Parry MD Feb 22, 2017 14:07
[2017-02-22 16:00] VITALS: BP 103/65; PULSE 74; RESP 16; TEMP 96.9; O2SAT 95
[2017-02-22 20:00] VITALS: BP 118/77; PULSE 65; RESP 18; TEMP 97.6; O2SAT 93
[2017-02-22] MEDS: DILTIAZEM-CD 120 MG CAP ER PO SCH (20:11)
[2017-02-22] MEDS: ATORVASTATIN 80 MG TAB PO SCH (20:11)
[2017-02-23] VITALS: BP 111/70; PULSE 79; RESP 19; TEMP 97; O2SAT 97
[2017-02-23] MEDS: PIPERACIL-TAZO 3.375 GM PREMIX 50 ML IV SCH ×3 (00:25→17:16)
[2017-02-23] MEDS: INSULIN ASPART SUPPLEMENTAL SCALE SQ SCH ×4 (06:21→21:29)
--- NOTE | 2017-02-23 07:07 | MP ---
cc: LANDEN GOLDMIRTHACharis AYALA DATE OF SURGERY February 19, 2017 INDICATIONS This patient is a 51-year-old male who presented to the emergency department with worsening infection to his left foot with swelling, redness and purulent drainage coming from the wound to the sub-fourth metatarsal head area. He was seen and an MRI was performed and showed changes consistent with osteomyelitis to the fourth metatarsal head as well as the base of the proximal phalanx of the fourth toe. I discussed the findings with the patient and that we could likely address the issue through the plantar aspect of the foot where he already has a wound and excise the ulceration, expose the bone, remove the infected bone from the area through that plantar incision and that he would likely be non-weightbearing for an extended period of time while the wound continues to heal and may require further surgery. The patient understood the risks, benefits and potential complications of surgery and wanted to move forward with a left partial fourth ray amputation. PROCEDURE The patient was seen in preop holding by myself, nursing staff and Anesthesia where the correct patient, side and site were all can confirmed to be the left foot. The patient was taken back to the surgical suite, placed in supine position where the left foot was prepped and draped in normal sterile fashion followed by attention directed to the left plantar aspect of the foot where the ulceration was probed and found to extend into the plantar medial arch area, approaching that area an additional 4-cm from the original wound as well as distally to the base of the fourth digit. The incision was made encompassing that entire area. The wound was excised and dissection was taken down to the plantar aspect of the fourth metatarsophalangeal joint area where the bone was transected to the fourth metatarsal of the proximal and mid-shaft area as well as the base of the proximal phalanx and sent to pathology as a specimen of bone, fourth met head and fourth base of proximal phalanx to pathology for gross examination. Another residual piece of the fourth metatarsal was sent for bone biopsy to determine if residual evidence of osteomyelitis was present there, as well as residual bone to the fourth proximal phalanx for bone biopsy to determine if there was evidence of osteomyelitis left within the body. Culture swab was also taken of the foot. Irrigation of the area was performed using 3 liters of normal sterile saline during which there was significant excision and removal of any necrotic fatty tissue and purulent material in the area using a rongeur, a #15 blade and a curette in order to remove all necrotic tissue from the wound. Following this the wound was then partially closed from the most proximal and most distal aspects where the original wound was located. There was left an area for packing to be placed where 1/2-inch NuGauze packing was placed within that area, followed by a dressing consisting of 4x4s, ABD pads, Sof-Rol and an Du bandage to the left foot. The patient tolerated procedure and anesthesia well without complications and was taken back to PACU with vital signs stable and vascular status intact to the remainder of the left foot. He will be non-weightbearing to the left foot and will follow the cultures in order to determine further surgery versus continued wound care and non-weightbearing long-term as well as IV antibiotics pending the bone biopsies intraoperatively. SHORT OPERATIVE NOTE SURGEON John Gold DPM [employer] Staff. PREOPERATIVE DIAGNOSIS Osteomyelitis left fourth base of proximal phalanx and fourth metatarsal head. POSTOP DIAGNOSIS Osteomyelitis left fourth base of proximal phalanx and fourth metatarsal head. PROCEDURE Partial left fourth ray amputation. PATHOLOGY 1. Bone fourth metatarsal head and fourth base of proximal phalanx to pathology. 2. Bone residual fourth metatarsal for bone biopsy. 3. Bone residual fourth proximal phalanx for bone biopsy. 4. Culture swab left foot. Anes General endotracheal anesthesia. ESTIMATED BLOOD LOSS Minimal. COMPLICATIONS None. CONDITION Stable to PACU. DISPOSITION Non-weightbearing left foot with continued monitoring of wound and biopsies and cultures to determine further treatment necessary. John MOORE/JAY /5:11 PM /7:02 AM
[2017-02-23 08:00] VITALS: BP 119/78; PULSE 73; RESP 17; TEMP 97.5; O2SAT 96
[2017-02-23] MEDS: LORATADINE 10 MG TAB PO SCH (09:00)
[2017-02-23] MEDS: RAMIPRIL 5 MG CAP PO SCH (09:00)
[2017-02-23] MEDS: INSULIN DETEMIR 100 UNITS/ML VIAL SQ SCH ×2 (09:03→21:29)
[2017-02-23 12:00] VITALS: BP 116/74; PULSE 79; RESP 19; TEMP 97.3; O2SAT 93
--- NOTE | 2017-02-23 14:50 | HHI.PR ---
Subjective Remarks No new complaints. Objective Vitals Vital Signs Date Time Temp Pulse Resp B/P Pulse Ox O2 Delivery O2 Flow Rate FiO2 02/23/17 12:00 97.3 79 19 116/74 93 02/23/17 08:00 97.5 73 17 119/78 96 02/23/17 00:00 97.0 79 19 111/70 97 02/22/17 20:00 97.6 65 18 118/77 93 02/22/17 16:00 96.9 74 16 103/65 95 02/22/17 02/22/17 02/23/17 15:00 23:00 07:00 Intake Total 480 ml 360 ml 290 ml Output Total 800 ml 700 ml 450 ml Balance -320 ml -340 ml -160 ml Intake Oral 480 ml 360 ml 240 ml IV Total 0 ml 50 ml Output Urine Total 800 ml 700 ml 450 ml Drainage Total 0 ml # Voids 1 # Bowel Movements 0 0 0 Result Diagram: 02/19/17 0532 02/23/17 0321 Imaging Last Impressions Foot X-Ray 02/19/17 0000 Signed Impressions: Service Date/Time: February 20:30 - CONCLUSION: Interim bone resection on both sides of the fourth metatarsophalangeal joint as above. No acute complication demonstrated. Og Paz MD Foot MRI 02/17/17 0000 Signed Impressions: Service Date/Time: Friday, February 17, 2017 17:51 - CONCLUSION: 1. Deep soft tissue ulcer plantar to the fourth metatarsophalangeal joint and with suspected osteomyelitis of the fourth metatarsal head and proximal phalangeal base. No abscess. 2. Chronic appearing subcutaneous fluid collection of the heel pad, nonspecific but could be related to old trauma. An acute abscess is doubted. The underlying bone is normal. 3. Mild marrow edema of the navicular that is likely reactive. Mild navicular/cuneiform and talonavicular osteoarthritis noted. Navicular osteomyelitis is doubted. Og Paz MD Objective Remarks GENERAL: This is a well-nourished, well-developed patient, in no apparent distress. CARDIOVASCULAR: Regular rate and rhythm without murmurs, gallops, or rubs. RESPIRATORY: Clear to auscultation. Breath sounds equal bilaterally. No wheezes , rales, or rhonchi. GASTROINTESTINAL: Abdomen soft, non-tender, nondistended. Normal active bowel sounds MUSCULOSKELETAL: Extremities without clubbing, cyanosis, or edema. NEURO: Alert & Oriented x4 to person, place, time, situation. Moves all ext x4 EXT: left foot bandaged A/P Problem List: (1) Diabetic foot infection Status: Chronic Plan: - Pt has had a small open wound on the plantar aspect of his foot for the last 2 -3 months. - He reports that he has been on 2 or 3 rounds of different antibiotics, the last of which was Bactrim (he is unable to recall the previous Abx) - Over the last 2 weeks the wound has been worsening despite debridement by podiatry per the pt. - Then two days ago he noted more swelling and erythema on the dorsal aspect of the foot. - Pt sent to the ED for IV Abx and MRI - MRI Foots (02/17) --> Deep soft tissue ulcer plantar to the fourth metatarsophalangeal joint and with suspected osteomyelitis of the fourth metatarsal head and proximal phalangeal base. No abscess. Chronic appearing subcutaneous fluid collection of the heel pad, nonspecific but could be related to old trauma. An acute abscess is doubted. The underlying bone is normal. Mild marrow edema of the navicular that is likely reactive. Mild navicular/cuneiform and talonavicular osteoarthritis noted. Navicular osteomyelitis is doubted. 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 Leiva - Intraoperative cultures taken so far growing strep viridans - Pathology pending to check bone margins --> pending - Dr. Parry discussed with podiatry who prefers picc and iv abx. - request input/consult from ID - Zosyn (02/17/17 - present) - Vancomycin (02/17 - 02/22/17) (2) Diabetes mellitus Status: Chronic Plan: - A1c was around 8.7 in December 2016 per pt. - SSI and lower dose Levemir - (3) Diabetic neuropathy Status: Chronic Plan: - Pt has started Lyrica over last month or 2. - Gabapentin caused too much fatigue at higher doses. (4) Elevated cholesterol Status: Chronic Plan: cont rx (5) Hypertension Status: Chronic Plan: cont rx Problem Qualifiers (1) Diabetes mellitus: Qualified Code: E11.42 - Type 2 diabetes mellitus with diabetic polyneuropathy , with long-term current use of insulin (2) Diabetic neuropathy: Beau Collado DO Feb 23, 2017 14:50
[2017-02-23 16:00] VITALS: BP 103/69; PULSE 75; RESP 18; TEMP 97.7; O2SAT 93
[2017-02-23 20:00] VITALS: BP 121/75; PULSE 77; RESP 18; TEMP 98.9; O2SAT 94
[2017-02-23] MEDS: ATORVASTATIN 80 MG TAB PO SCH (21:26)
[2017-02-23] MEDS: DILTIAZEM-CD 120 MG CAP ER PO SCH (21:26)
[2017-02-24] VITALS: BP 118/82; PULSE 77; RESP 19; TEMP 97.4; O2SAT 98
[2017-02-24] MEDS: PIPERACIL-TAZO 3.375 GM PREMIX 50 ML IV SCH ×2 (00:04→08:35)
[2017-02-24] MEDS: ACETAMINOPHEN/HYDROcodone 325 MG/7.5 MG TAB PO PRN ×2 (04:11→08:35)
[2017-02-24] MEDS: INSULIN ASPART SUPPLEMENTAL SCALE SQ SCH ×2 (06:27→13:14)
[2017-02-24 08:00] VITALS: BP 141/79; PULSE 66; RESP 15; TEMP 96.6; O2SAT 97
[2017-02-24] MEDS: LORATADINE 10 MG TAB PO SCH (08:35)
[2017-02-24] MEDS: RAMIPRIL 5 MG CAP PO SCH (08:35)
[2017-02-24] MEDS: INSULIN DETEMIR 100 UNITS/ML VIAL SQ SCH (08:47)
[2017-02-24 08:56] VITALS: BP 113/76
--- NOTE | 2017-02-24 10:45 | PD.CONS ---
History of Present Illness Service Infectious disease Consult Requested By Dr Collado Reason for Consult Evaluate patient with polymicrobial diabetic foot infection, status post 4 ray resection Primary Care Physician Edgar Yeung M.D. Diagnoses: History of Present Illness Patient seen and examined. Records reviewed. Patient is a 51-year-old male, with diabetes, admitted to the hospital for further evaluation of his left foot. Patient apparently developed a wound on the plantar aspect of his left foot about 3 months ago. The sheet heater helper has been following him fairly regularly, and he has had several courses of oral antibiotics. More recently the wounds started looking worse, and about a day or 2 prior to admission he developed redness and swelling on the dorsum of his left foot. Patient was advised to go to the hospital for further evaluation and treatment. He underwent MRI of the left foot which showed evidence of osteomyelitis on the fourth metatarsal as well as the proximal aspect of the fourth phalanx. He underwent surgery on February 19. Culture of the swab had viridans strep. Pathology report is still pending. Patient has had some subjective fevers. Denies any chills. No respiratory complaint. He denies any GI or any urinary complaints. Infectious disease consultation has been requested to evaluate the patient and make further recommendation Review of Systems Constitutional: COMPLAINS OF: Fever, DENIES: Chills, Night Sweats Eyes: DENIES: Eye pain Ears, nose, mouth, throat: DENIES: Nasal discharge, Oral lesions, Throat pain, Sinus Pain Respiratory: DENIES: Cough, Shortness of breath Cardiovascular: DENIES: Chest pain, Palpitations Gastrointestinal: DENIES: Abdominal pain, Diarrhea, Nausea, Vomiting, Difficulty Swallowing Genitourinary: DENIES: Dysuria Musculoskeletal: COMPLAINS OF: Joint pain, Joint Swelling Integumentary: DENIES: Rash Neurologic: COMPLAINS OF: Paresthesias, DENIES: Localized weakness Psychiatric: DENIES: Confusion, Hallucinations Past Family Social History Allergies: Coded Allergies: No Known Allergies (Verified , 05/24/16) Past Medical History DM2 dx in late HTN Hyperlipidemia osteomyelitis 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 Past Surgical History right foot partial 5th toe amputation in appx late 2014 bilat CTR T&A Active Ordered Medications [place] Lipitor Cardizem Insulin Claritin Zofran Zosyn [place] Family History Father- DM Mother- of pancreatic CA at 71, DM Social History No tobacco since 1994, only smoked 1 pack per week for 1 year at that time Occasional ETOH, 2 beers/week No illicit drug use Physical Exam Vital Signs Vital Signs Date Time Temp Pulse Resp B/P Pulse Ox O2 Delivery O2 Flow Rate FiO2 02/24/17 08:56 113/76 02/24/17 08:00 96.6 66 15 141/79 97 02/24/17 00:00 97.4 77 19 118/82 98 02/23/17 20:00 98.9 77 18 121/75 94 02/23/17 16:00 97.7 75 18 103/69 93 02/23/17 12:00 97.3 79 19 116/74 93 Physical Exam GENERAL: Patient is a well-nourished, well-developed CM, awake and alert, not in respiratory distress. SKIN: Warm and dry. No generalized rash, no ecchymoses and no evidence of embolic lesions. HEAD: Atraumatic. Normocephalic. No temporal wasting, or tenderness. EYES: [place] conjunctiva. No petechia or hemorrhage. Pupils equal, round and reactive to light. Extraocular movements full and intact. No scleral icterus. No injection or drainage. EARS, NOSE AND THROAT: Nose without bleeding or purulent nasal discharge. No sinus tenderness. Mucous membranes pink and moist. No oral lesions noted. No exudate. No oral thrush. NECK: Trachea midline. Supple and not tender, no meningeal signs CARDIOVASCULAR: Regular rate and rhythm. No murmurs, rubs or gallops heard RESPIRATORY: Clear to auscultation. Breath sounds equal bilaterally. No rales , wheezing or rhonchi ABDOMEN: Soft, non-tender, nondistended. Bowel sounds present and normoactive. No guarding. No rebound. No organomegaly. EXTREMITIES: No clubbing, cyanosis, or edema. L foot - has wound vac on plantar aspect of his foot, has min erythema at base of his 2nd-4th toes dorsally, min edema, no crepitus. He has chronic skin changes on distal L leg. No calf tenderness. Well perfused and warm. NEUROLOGICAL: Awake and alert. Cranial nerves grossly intact. Motor grossly within normal limits. PSYCHIATRIC: Normal affect, calm and cooperative. LINE: No evidence of infection Laboratory Date/Time Procedure Status Source Growth 02/19/17 19:27 Gram Stain - Final Complete Wound Foot 6/15/17 19:27 Wound Culture - Final Complete Viridans Streptococcus Grp 02/19/17 19:27 Fungal Smear - Final Resulted Wound Foot NO FUNGAL ELEMENTS SEEN. 02/19/17 19:27 Fungal Culture Resulted Wound Foot Pending 02/19/17 19:27 Acid Fast Stain - Final Resulted Wound Foot NO ACID FAST BACILLI SEEN 02/19/17 19:27 Mycobacterial Culture Resulted Wound Foot Pending Result Diagram: 02/23/17 0321 Imaging RADIOLOGY STUDIES/FILMS REVIEWED Foot X-Ray 02/19/17 0000 Signed Impressions: Service Date/Time: February 20:30 - CONCLUSION: Interim bone resection on both sides of the fourth metatarsophalangeal joint as above. No acute complication demonstrated. Og Paz MD Foot MRI 02/17/17 0000 Signed Impressions: Service Date/Time: Friday, February 17, 2017 17:51 - CONCLUSION: 1. Deep soft tissue ulcer plantar to the fourth metatarsophalangeal joint and with suspected osteomyelitis of the fourth metatarsal head and proximal phalangeal base. No abscess. 2. Chronic appearing subcutaneous fluid collection of the heel pad, nonspecific but could be related to old trauma. An acute abscess is doubted. The underlying bone is normal. 3. Mild marrow edema of the navicular that is likely reactive. Mild navicular/cuneiform and talonavicular osteoarthritis noted. Navicular osteomyelitis is doubted. Og Paz MD Assessment and Plan Assessment and Plan IMPRESSION DFI, with chronic ulcer, has osteo 4th MT and proximal 4th digit - S/P surgery - C/S of wound with Viridans Strep - path pending Previous DFI R foot and amputation, has done well DM, with neuropathy RECOMMENDATION Change Abx to Rocephin Await path report Will D/W podiatry - patient has open wound and has wound vac in place Will make further recommendations after above done I will follow along with you Thank you for this consultation Discussed Condition With Explained plan to patient Nichole Grider MD Feb 24, 2017 10:45
[2017-02-24 12:00] VITALS: BP 100/64; PULSE 85; RESP 18; TEMP 97.6; O2SAT 93
[2017-02-24] MEDS ORDERED: cefTRIAXone INJ 2,000 MG in SODIUM CHLORIDE 0.9% INJ 100 ML IV SCH (12:00)
--- NOTE | 2017-02-24 13:55 | HHI.FF ---
Face to Face Verification Diagnosis: (1) Non-healing ulcer of lower leg (2) Acute osteomyelitis of toe of right foot (3) Diabetic foot infection (4) Diabetes mellitus Physical Therapy Order: Evaluate and Treat, Improve ambulation, Strength and gait training Home Health Nursing Order: Medical education Signs/symptoms of disease process Diabetic education Medication education-adverse effect Wound care and dressing changes Nursing assessment with vital signs Instructions: assist with wound VAC I have seen patient Mohan Ruffin on 02/24/17. My clinical findings support the need for the requested home health care services because: Ltd mobility - disease progression Deconditioned w/ increased weakness Med compliance is questionable Need for psychosocial assistance I certify that my clinical findings support that this patient is homebound because: Unsafe to leave home unassisted Need for psychosocial assistance Unable to use public transportation Beau Collado DO Feb 24, 2017 13:55
[2017-02-24] MEDS ORDERED: LEVEMIR SQ (14:08)
[2017-02-24] MEDS ORDERED: HYDR-3580 PO (14:08)
--- NOTE | 2017-02-24 14:29 | HHI.DS ---
Discharge Summary Admission Date Feb 17, 2017 at 17:05 Discharge Date: Feb 24, 2017 Admitting Diagnosis left foot infected diabetic ulcer, failed outpatient treatment (1) Diabetic foot infection Diagnosis: Principal (2) Diabetes mellitus Diagnosis: Secondary (3) Diabetic neuropathy Diagnosis: Secondary (4) Elevated cholesterol Diagnosis: Secondary (5) Hypertension Diagnosis: Secondary Consultants Dr. Aramis Leiva, Podiatry Brief History 51-year-old male with DM2 and prior osteomyelitis that presents to the ED for evaluation of wounds to his left leg. Per patient he has an ulcer from diabetes on his left foot. Patient follows with Dr. Davies regularly and she's been treating him for the past 2.5-3 months for this with no resolution. Per patient she was seen today and Dr. Davies was concerned because the wound appeared to be more infected and she wrote him a prescription that states that patient needs to be [facility] for [facility] and consult to her and will like at MRI as well as start the patient on Vancomycin/Zosyn. Patient voices no pain as he has chronic neuropathy. Patient has a history of diabetes and takes insulin as well as oral hyperglycemic agents. She states that the swelling and redness appears to be worsening. He states having chills for the past couple of days worsening today. No actual fever as he has not checked his temperature, but reports subjective fever last 2 days with more redness in left 4th toe. No chest pain or shortness of breath. No cough or runny nose. No abdominal pain. No other complaints. CBC/BMP: 02/23/17 0321 Imaging Last Impressions Foot X-Ray 02/19/17 0000 Signed Impressions: Service Date/Time: February 20:30 - CONCLUSION: Interim bone resection on both sides of the fourth metatarsophalangeal joint as above. No acute complication demonstrated. Og aPz MD Foot MRI 02/17/17 0000 Signed Impressions: Service Date/Time: Friday, February 17, 2017 17:51 - CONCLUSION: 1. Deep soft tissue ulcer plantar to the fourth metatarsophalangeal joint and with suspected osteomyelitis of the fourth metatarsal head and proximal phalangeal base. No abscess. 2. Chronic appearing subcutaneous fluid collection of the heel pad, nonspecific but could be related to old trauma. An acute abscess is doubted. The underlying bone is normal. 3. Mild marrow edema of the navicular that is likely reactive. Mild navicular/cuneiform and talonavicular osteoarthritis noted. Navicular osteomyelitis is doubted. Og Paz MD PE at Discharge GENERAL: This is a well-nourished, well-developed patient, in no apparent distress. CARDIOVASCULAR: Regular rate and rhythm without murmurs, gallops, or rubs. RESPIRATORY: Clear to auscultation. Breath sounds equal bilaterally. No wheezes , rales, or rhonchi. GASTROINTESTINAL: Abdomen soft, non-tender, nondistended. Normal active bowel sounds MUSCULOSKELETAL: Extremities without clubbing, cyanosis, or edema. NEURO: Alert & Oriented x4 to person, place, time, situation. Moves all ext x4 EXT: left foot bandaged Hospital Course (1) Diabetic foot infection Status: Chronic Plan: - Pt has had a small open wound on the plantar aspect of his foot for the last 2 -3 months. - He reports that he has been on 2 or 3 rounds of different antibiotics, the last of which was Bactrim (he is unable to recall the previous Abx) - Over the last 2 weeks the wound has been worsening despite debridement by podiatry per the pt. - Then two days ago he noted more swelling and erythema on the dorsal aspect of the foot. - Pt sent to the ED for IV Abx and MRI - MRI Foots (02/17) --> Deep soft tissue ulcer plantar to the fourth metatarsophalangeal joint and with suspected osteomyelitis of the fourth metatarsal head and proximal phalangeal base. No abscess. Chronic appearing subcutaneous fluid collection of the heel pad, nonspecific but could be related to old trauma. An acute abscess is doubted. The underlying bone is normal. Mild marrow edema of the navicular that is likely reactive. Mild navicular/cuneiform and talonavicular osteoarthritis noted. Navicular osteomyelitis is doubted. 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 Leiva - Intraoperative cultures taken so far growing strep viridans - Pathology d/w Dr. Steve (02/24/17) --> clear margins - Zosyn (02/17/17 - 02/24/17) - Vancomycin (02/17 - 02/22/17) - Appreciate input from ID, Dr. Grider - amoxicillin 500mg TID x 14d - levaquin 750mg daily x 14d - Case d/w Dr. Leiva (02/24/17). Pt is to be non-weight bearing at E - Continue Wound Vac - out of work until reevaluation by Dr. Leiva in 1 week. - [facility] has been arranged (2) Diabetes mellitus Status: Chronic Plan: - A1c was around 8.7 in December 2016 per pt. - SSI and lower dose Levemir 25 units BID, which may need to be increased once pt has resumed home diet - resume jardiance and metformin upon discharge - (3) Diabetic neuropathy Status: Chronic Plan: - Pt has started Lyrica over last month or 2. - Gabapentin caused too much fatigue at higher doses. (4) Elevated cholesterol Status: Chronic Plan: cont rx (5) Hypertension - lisinopril stopped due to low/normal BP readings If BP rises outpt, then his lisinopril may need to be resumed. Pt Condition on Discharge: Stable Discharge Disposition: Disch w/ Home Health Serv Discharge Instructions DIET: Follow Instructions for: Diabetic Diet Activities you can perform: Non Weight Bearing Other Activity Instructions: non-weight bearing of left leg Follow up Referrals: Podiatry - 1 Week with John Leiva DPM New Medications: Hydrocodone-Acetaminophen (Hydrocodone-Acetaminophen) 7.5-325 mg Tab 1 TAB PO Q4H PRN pain #20 TAB Insulin Detemir Inj (Levemir Inj) 1,000 unit/ 10 ML Vial 25 UNITS SQ Q12HR DM Days 30 INJECTION Continued Medications: Aspirin (Aspirin) 81 Mg Tab 81 MG PO DAILY DILTIAZEM XT 120 mg (Cartia) (Cartia XT 120 mg) 120 Mg/24 Hr Cap 120 MG PO HS Needs follow up. #90 Ref 0 CAP Empagliflozin (Jardiance) 10 Mg Tab 10 MG PO DAILY Metformin ER 24 HR (Metformin ER 24 HR) 1,000 Mg Tab 1000 MG PO BID #180 Ref 0 TAB Rosuvastatin Calcium (Crestor) 40 Mg Tab 1 TAB PO HS Sildenafil Citrate (Viagra) 50 Mg Tab 50 MG PO ONCE PRN sex #5 Ref 2 TAB Discontinued Medications: Hydrocodone-Acetaminophen 5-325 mg ([place] 5-325 mg) 1 Tab 1 TAB PO Q6HR PRN pain #14 Ref 0 TAB Insulin Detemir (Levemir Insulin) 100 Units/Ml Inj 75 UNITS SQ BID #10 ML Lisinopril 10 mg (Lisinopril 10 mg) 10 Mg Tab 10 MG PO HS #90 Ref 0 TAB Ondansetron (Zofran ODT) 4 Mg Tab 4 MG SL Q8HR FOR NAUSEA/VOMITING PRN NAUSEA #10 Ref 0 TAB Beau Collado DO Feb 24, 2017 14:27
[2017-02-24] MEDS ORDERED: AMOX500C PO (15:54)
[2017-02-24] MEDS ORDERED: LEVO750T3 PO (15:54)
[2017-02-24 16:00] VITALS: BP 103/69; PULSE 79; RESP 17; TEMP 97.9; O2SAT 94
== END 2017-02-24 17:47 | disposition home health service (06) | DRG 617 ==
LOC: NEPC 14:01 → NEDA 17:05 → N07A 21:05
PROVIDERS: ADMIT Hospitalist; ATTEND Hospitalist
PROC: 0Y6W0Z0 Detachment at Left 4th Toe, Complete, Open Approach (ICD-10-PCS; principal; 2017-02-19 19:06)
DX: E11.69 Type 2 diabetes mellitus with other specified complication (principal); M86.172 Other acute osteomyelitis, left ankle and foot; I10 Essential (primary) hypertension; E11.621 Type 2 diabetes mellitus with foot ulcer; L97.529 Non-pressure chronic ulcer of other part of left foot with unspecified severity; E11.42 Type 2 diabetes mellitus with diabetic polyneuropathy; E78.5 Hyperlipidemia, unspecified; Z79.4 Long term (current) use of insulin
CPT/HCPCS: 73630; 73720; 80048; 80053; 80202; 82565; 82948; 83605; 83735; 85025; 85610; 85730; 87015; 87040; 87070; 87102; 87116; 87186; 87205; 87206; 88307; 88311; 96374; 96375; A9579; J0696; J1815; J2250; J2370; J2405; J2543; J2765; J3010; J3370; J7050